=== PATIENT | male | born 1955 | race Caucasian/White ===

== ENCOUNTER 2017-05-20 15:22 | Emergency (ER) | payer MEDICARE, MEDICAID ==
[~2017-05-20] VITALS: Ht 175.3 cm; Wt 136.4 kg
[~2017-05-20 15:22] MED LIST: /DULO30CA; /ESOM40CA; /ESOM40CA OR; /TAMS4CA OR; ALLE25CA OR; AMBI10TA OR; AMRIX ER; AMRIX ER OR; ARTHROTEC OR; ASTELIN NASAL SPRAY; AVAP150T; AVAP150T OR; CALCCHW12; CALCCHW12 OR; CLOB-25 EX; CRES5TAB; CRES5TAB OR; CYAN1000VL IM; DARV100T; DARV100T OR; DESO0.0522 EXT; DRIS50002 PO; FERR1TAB8 PO; FISH500C PO; FOLI1TAB; FOLI1TAB OR; FOLI400T PO; GABA-282 PO; GABA300C2 PO; HYDR25TA8 PO; IBUP600T OR; IBUP800T; IRBE150T12 PO; LEVO25TA2 OR; LORA0.5T OR; MAGN500T5 PO; MORP15TA6 PO; MULTIVIT OR; NEXI40CA PO; OXYC-517 PO; OXYC10TA12 OR; OXYC15TA66 PO; REMICADE; REMICADE IV; SALI0.6523; SAVELLA OR; SERO50TA3 PO; TESTPOW5 IM; THERGRAN; TRAM50TA2; TRAM50TA2 OR; TRAZ100T OR; VIIBRYD PO; VITA100T IM; VITA25003; VITA50TA12; VITAMIN D2 PO; VITAMIN D50000 UNT; VITAMIN D50000 UNT OR; WARF4TAB52 PO; ZETI10TA OR; ZOLP10TA2 PO; celebrex PO; diclofenac PO
[2017-05-20] MEDS ORDERED: IBUP-1022 PO (15:46)
[2017-05-20] MEDS ORDERED: TRAM50TA2 PO (15:46)
[2017-05-20] MEDS ORDERED: LIPI10TA PO (15:46)
[2017-05-20] MEDS ORDERED: COLA100C5 PO (15:46)
[2017-05-20] MEDS ORDERED: VICT18IN SC (15:46)
[2017-05-20] MEDS ORDERED: MULT1CHW26 PO (15:46)
[2017-05-20] MEDS ORDERED: GABA-283 PO (17:13)
[2017-05-20] MEDS ORDERED: oxyCODONE 5MG TAB PO ONE (17:15)
[2017-05-20] MEDS ORDERED: IBUPROFEN 800 MG TAB PO ONE (17:15)
[2017-05-20] MEDS ORDERED: GABAPENTIN 400 MG CAP PO ONE (17:15)
[2017-05-20 17:35] LABS: MEAN CORPUSCULAR HEMOGLOBIN 33.4 pg (27.0-33.0); MEAN CORPUSCULAR HGB CONC 36.2 g/dl (32.0-36.5); MEAN CORPUSCULAR VOLUME 92.3 fl (80.0-96.0); RED CELL DISTRIBUTION WIDTH 12.1 % (11.5-14.5); WHITE BLOOD COUNT 7.7 K/mm3 (4.0-10.0)
[2017-05-20 17:43] LABS: METHADONE URINE NEGATIVE (NEGATIVE)
[2017-05-20 18:06] LABS: ALBUMIN 4.1 GM/DL (3.2-5.2); ALBUMIN/GLOBULIN RATIO 1.21 (1.00-1.93); ALKALINE PHOSPHATASE 95 U/L (45-117); ALT/SGPT 46 U/L (12-78); ANION GAP 7 MEQ/L (8-16); AST/SGOT 31 U/L (15-37); BILIRUBIN,DIRECT 0.1 MG/DL (0.0-0.2); BILIRUBIN,TOTAL 0.5 MG/DL (0.2-1.0); BLOOD UREA NITROGEN 18 MG/DL (7-18); CALCIUM LEVEL 8.6 MG/DL (8.8-10.2); CARBON DIOXIDE LEVEL 27 MEQ/L (21-32); CHLORIDE LEVEL 105 MEQ/L (98-107); CREATININE FOR GFR 1.09 MG/DL (0.70-1.30); GLOMERULAR FILTRATION RATE > 60.0 (>49); GLUCOSE, FASTING 99 MG/DL (80-110); SODIUM LEVEL 139 MEQ/L (136-145); TOTAL PROTEIN 7.5 GM/DL (6.4-8.2)
[2017-05-20 19:40] VITALS: BP 158/87
== END 2017-05-20 19:41 | disposition home or self-care (01) ==
LOC: M ED 15:22
DX: F32.9 Major depressive disorder, single episode, unspecified (principal); I10 Essential (primary) hypertension; G89.29 Other chronic pain; M51.9 Unspecified thoracic, thoracolumbar and lumbosacral intervertebral disc disorder; L40.50 Arthropathic psoriasis, unspecified; G47.33 Obstructive sleep apnea (adult) (pediatric); M79.7 Fibromyalgia; Z87.891 Personal history of nicotine dependence; Z79.899 Other long term (current) drug therapy; Z88.8 Allergy status to other drugs, medicaments and biological substances
CPT/HCPCS: 36415; 80048; 80076; 80307; 84443; 85027; 99284; G0480

== ENCOUNTER → 2017-08-19 | Outpatient (CLI) | payer MEDICARE, MEDICAID ==
[~2017-08-19] MED LIST changes: +COLA100C5 PO; +GABA-283 PO; +IBUP-1022 PO; +LIPI10TA PO; +MULT1CHW26 PO; +TRAM50TA2 PO; +VICT18IN SC
--- NOTE | 2017-09-17 01:31 | ECWPNPC ---
PATIENT NAME: ZORAIDA BRAUN : 1955 GENDER: MALE VISIT DATE: 08/19/2017 DISCHARGE DATE: 08/19/17 1547 VISIT LOCKED DATE TIME: PHYSICIAN: NICK HAYES RESOURCE: NICK HAYES REASON FOR APPOINTMENT 1. NECK AND THORACIC PAIN HISTORY OF PRESENT ILLNESS NEW PATIENT CONSULT: WHEN DID YOUR PAIN FIRST START? . BRIEFLY DESCRIBE HOW YOUR PAIN STARTED? . HOW DOES YOUR PAIN CHANGE WITH TIME? . DOES YOUR PAIN AWAKEN YOU FROM SLEEP? . HOW MANY HOURS OF SLEEP DO YOU NORMALLY GET? . ANY DIAGNOSTIC TESTING? . FACILITY WHERE TESTS WERE DONE? ____. PAIN TREATMENT TREATMENT YES CANCER HAVE YOU EVER HAD ANY TYPE OF CANCER?NO NO. PAIN SCREENING: PATIENT HAS A COMPLAINT OF ACUTE OR CHRONIC PAIN :YES FALL RISK SCREENING: SCREENING :NO FALLS IN THE PAST YEAR ABREU INVENTORY: QUESTIONNAIRE ASSESSEDNO SCORE VALUE CALCULATED NO PT DECLINES TO FILL OUT ABREU SELF INVENTORY. STATES THAT DEPRESSION IS UNDER CONTROL AND DENIES SUICIDAL IDEATION TODAY'S VISIT: NOTES: REFERRED FOR NECK ANAD THORACIC PAIN AND HAS LONG STANDING HISTORY OF LOW BACK PAIN WHICH EFFECTS WALKING. IS ALSO CURRENTLY HAVING PAIN IN MID BACK WITH RADIATIN OF PAINAROUND RIBS LEFT SIDE. NO SIGN OF RASH OR SHINGLES IN THIS AREA. NO LOW BACK IS THE WORSE WITH BILATERAL SCIATIC PAIN. 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 IS NOTING NUMBNESS FROM HIPS TO FEET WHEN STANDING. IS HAVING EXPERIENCING PERINEAL NUMBNESS AND HAS SOME ISSUES WITH BOWEL CONTROL. HAS SOME BLADER URGENCY. SAW [place] BUSTILLO/DR CASTELLON, SURGEON FOR NECK AT [place]. CURRENT MEDICATIONS TAKING GABAPENTIN 300 MG CAPSULE 1 CAPSULE ORALLY THREE TIMES A DAY TAKING OXYCODONE HCL 5 MG TABLET 1 TABLET NEEDED ORALLY EVERY 4 HOURS PRN TAKING FERROUS SULFATE 325 MG CAPSULE ORALLY TAKING IRBESARTAN 150 MG TABLET 1 TABLET ORALLY ONCE A DAY TAKING AMBIEN 10 MG TABLET ORAL TAKING DESONIDE 0.05 % OINTMENT 1 APPLICATION TO AFFECTED AREA EXTERNALLY TWICE A DAY TAKING NEXIUM 40 MG CAPSULE DELAYED RELEASE 1 CAPSULE ORALLY ONCE A DAY TAKING VITAMIN D (ERGOCALCIFEROL) 49741 UNIT CAPSULE 1 CAPSULE ORALLY TAKING VICTOZA 18 MG/3ML SOLUTION PEN-INJECTOR SUBCUTANEOUS NOT-TAKING OXYCONTIN 15 MG TABLET EXTENDED RELEASE 12 HOUR 1 TABLET ORALLY EVERY 12 HRS NOT-TAKING WARFARIN SODIUM 8 MG TABLET 1 TABLET ORALLY ONCE A DAY AND 7 MG ON SATURDAY NOT-TAKING FOLIC ACID 4 MG TABLET 1 TABLET ORALLY ONCE A DAY NOT-TAKING CYANOCOBALAMIN 1000 MCG/ML SOLUTION 1 ML INJECTION NOT-TAKING CLOBETASOL & CLOBETASOL EMUL 0.05 & 0.05 % MISCELLANEOUS EXTERNALLY NOT-TAKING KEFLEX 500 MG CAPSULE 1 CAPSULE ORALLY DIRECTED NOT-TAKING PROAIR HFA 108 (90 BASE) MCG/ACT AEROSOL SOLUTION 2 PUFFS NEEDED INHALATION QID PRN NOT-TAKING VITAMIN B-12 1000 MCG/ML SOLUTION 1 ML INJECTION MONTHLY UNKNOWN COLACE 100 MG CAPSULE 1 CAPSULE NEEDED ORALLY ONCE A DAY UNKNOWN LEVAQUIN 500 MG TABLET 1 TABLET ORALLY ONCE A DAY MEDICATION LIST REVIEWED AND RECONCILED WITH THE PATIENT PAST MEDICAL HISTORY HTN CHRONIC PAIN KIDNEY STONE ED RLS TESTICULAR HYPOFUNCTION SLEEP APNEA VITAMIN B 12 DEFICIENCY ANXIETY ARTHRITIS TIA HYPERLIPIDEMIA HYPOTHYROIDISM OSTEOPENIA NEUROPATHY PSORIASIS PULMONARY EMBOLISM COLON POLYP VITAMIN D DEFICIENCY IRRITABLE COLON CHRONIC PEPTIC ULCER INSOMNIA FIBROMYALGIA PRNEOMOTHORAX DIEBETES/ ELEVATED A1C ALLERGIES TOPIRAMATE: HEART PALPITATIONS: ALLERGY GEMFIBROZIL: UNKNOWN: ALLERGY NIACIN: UNKNOWN: ALLERGY BEE STINGS: SWELLING, BLOOD POISONING: ALLERGY LEVAQUIN: SWELLING: ALLERGY SURGICAL HISTORY BROKEN LEFT LEG 4 SURGERIES 1970,1971, 1973 URETHRA RECONSTRUCTION SURGERY 1975 ORAL SUGERY 26 TEETH EXTRACTED 1981 CARDIAC CATH 1998 BILATERAL INGUINAL HERNIA 2000 COLONOSCOPY AND ENDOSCOPY 1998 COLONOSCOPY 2 TIMES [id number] COLONOSCOPY AND ENDOSCOPY 2005 COLONOSCOPY 2007 COLONOSCOPY/GASTROSCOPY 06/28/2009 RIGHT SHOULDER ROTATOR CUFF REPAIR 05/02/2010 LEFT SHOULDER ROTATOR CUFF REPAIR 04/12/2011 RIGHT CARPAL TUNNEL RELEASE 06/2011 LEFT CARPAL TUNNEL RELEASE 08/2011 RIGHT AND LEFT EYE-LID LIFT 08/2011 ORAL SURGERY 10/13/11 SKIN CANCER REMOVED FROM LEFT ELBOW 06/29/12 LESION REMOVED LEFT LEG, 2 NODULES NEAR LEFT ELBOW 2013 LESION REMOVED R.LEG 12/02/14 PNEUMOTHORAX RIGHT LUNG 04/25/15 PNEUMOTHORAX RIGHT LUNG 04/28/15 PULMONARY EMBOLISM BOTH LUNGS 05/19/15 PNEUMOTHORAX RIGHT LUNG, HEMORRHAGE 08/13/15 RIGHT LUNG REPAIR 08/18/15 FAMILY HISTORY FATHER: 83 YRS, COPD MOTHER: 87 YRS, LEUKEMIA SIBLINGS: ALIVE 2 BROTHER(S) , 3 SISTER(S) . ONE BROTHER FROM HEART ATTACK. SOCIAL HISTORY GENERAL: TOBACCO USE ARE YOU A:FORMER SMOKER HOW LONG HAS IT BEEN SINCE YOU LAST SMOKED?> 10 YEARS ALCOHOL SCREENING POINTS: 0, INTERPRETATION: NEGATIVE. RECREATIONAL DRUG USE DENIES. CAFFEINE 1-2/DAY. SEXUAL HX HAD SEX IN THE LAST 12 MONTHS (VAGINAL, ORAL, OR ANAL)?: NO, HAVE YOU EVER HAD AN STD?: NO. DIET: REGULAR. EXERCISE: NO REGULAR EXERCISE. MARITAL STATUS: SINGLE. PRESYBETERIAN NO CHRISTIAN BELIEFS THAT WOULD IMPACT HEALTH CARE. LANGUAGE TUNISIAN. PAIN CLINIC PFS, CLERGY, PUBLIC HEALTH REFERRALS PFS REFERRAL NEEDED?NO CLERGY REFERRAL NEEDED?NO PUBLIC HEALTH REFERRAL NEEDED?NO WAS THE PROVIDER NOTIFIED OF ANY PERTINENT INFO?NO HAS THE PATIENT BEEN EDUCATED REGARDING HIS/HER PLAN OF CARE?YES HAS THE PATIENT BEEN EDUCATED REGARDING PAIN, THE RISK FOR PAIN, THE IMPORTANCE OF EFFECTIVE PAIN MANAGEMENT, AND THE PAIN ASSESSMENT PROCESS?YES PATIENT: ____. TRAVEL OUTSIDE US: DENIES. DOMESTIC VIOLENCE NONE. HOSPITALIZATION/MAJOR DIAGNOSTIC PROCEDURE SURGICAL HISTORY REVIEW OF SYSTEMS REVIEWED BY: PROVIDER: NICK CROOK . CONSTITUTIONAL: ANY CHANGE IN YOUR MEDICAL CONDITION? NO . CHILLS NO . FEVER NO . INFECTION: DO YOU HAVE NEW INFECTIONS? NO . DO YOU HAVE HISTORY OF MRSA? NO . MUSCULOSKELETAL: ANY NEW PATTERNS OF PAIN OR NUMBNESS? NO . SYTEMIC LUPUS NO . GASTROENTEROLOGY: ANY NEW CHANGE IN BOWEL CONTROL? NO . BARRETTS ESOPHAGUS NO . CIRRHOSIS NO . HEPATITIS NO . LIVER FAILURE NO . ACID REFLUX YES . UNEXPLAINED WEIGHT LOSS NO . GENITOURINARY: ANY NEW CHANGE IN BLADDER CONTROL? NO . IS THERE A CHANCE YOU COULD BE ? NO . HEMATOLOGY/LYMPH: DO YOU TAKE ANY BLOOD THINNERS? (FOR EXAMPLE- COUMADIN, PLAVIX, AGGRENOX, PLATEL, PRADAXA, OR XARELTO) NO . WHEN WAS YOUR LAST DOSE? DATE: TIME: . LOW PLATELET COUNT NO . SICKLE CELL DISEASE NO . VON WILLIEBRANDS NO . FACTOR V LEIDEN NO . THALLASEMIA NO . ANEMIA NO . EASY BRUISING NO . NEUROLOGY: MYAASTHENIA GRAVIS NO . LOSS OF SENSATION IN SPECIFIC BODY AREA LEGS TO FEET. PERINEAL NUMBNESS . CARDIOLOGY: DO YOU HAVE A PACEMAKER OR DEFIBRILLATOR? NO . ANGINA NO . HEART ATTACK NO . HEART SURGERY NO . CONGESTIVE HEART FAILURE/FLUID OVERLOAD NO . CHEST PAIN YES - SHARP IN ANTERIOR CHEST, AND IN BACK.HAD CARDIAC CATH WHICH SHOWED CLEAN CORONARIES . HIGH BLOOD PRESSURE NO . IRREGULAR HEART BEAT YES - HAS HEART MONITOR . RESPIRATORY: HAVE YOU BEEN SICK IN THE PAST WEEK? NO . FEVER NO . FLU LIKE SYMPTOMS? NO . CPAP YES . BYPAP NO . ASTHMA NO . EMPHYSEMA NO . CHRONIC LUNG DISEASES NOSPONTANEOUS PNEUMOTHORARAX AFTER FALL FROM LADDER APRIL 2015. HAD NUMEROUS CHEST TUBES PLACED AND THEN DEVELOPED PE- WAS ON COUMADIN. . SHORTNESS OF BREATH ON EXERTION NO . DO YOU USE ANY TYPE OF TOBACCO (SMOKE, SMOKELESS, CHEW)? NO . COUGH NO . SNORING YES . INTEGUMENTARY: DO YOU HAVE ANY RASHES OR OPEN SORES? PSORIASIS IN [place] AREAS. HEALING LEASIONS FROM SKIN CANCER LESIONS . ALLERGIC/IMMUNO: ARE YOU ALLERGIC TO SHELLFISH OR IV DYE? NO . ANY NEW ALLERGIES? NO . PSYCHIATRIC: DO YOU HAVE THOUGHTS OF HURTING YOURSELF OR SOMEONE ELSE? NO . ARE YOU ABUSED, NEGLECTED, OR IN AN UNSAFE ENVIRONMENT? NO . ENDOCRINOLOGY: ARE YOU DIABETIC? YES - A1C 5.1 - . THYROID DISORDER NO . OTHER: DO YOU NEED ANY PRESCRIPTIONS? NO . IF YES, PLEASE LIST: ____ . ANY NEW PROBLEMS WITH YOUR MEDICATIONS? NO . WHEN DID YOU LAST EAT? ____ . WHEN DID YOU LAST DRINK? ____ . WHAT DID YOU LAST DRINK? ____ . NAME OF PERSON DRIVING YOU HOME? ____ . DO YOU HAVE ANY OTHER QUESTIONS OR CONCERNS NO . VITAL SIGNS WT 303 LBS, HT 5'9'', BMI 44.74 INDEX, BP 127/75 MM HG, HR 77 /MIN, RR 16 /MIN, TEMP 98.6 F, OXYGEN SAT % 96, SAFE IN ENV? (Y/N) YES, REVIEWED BY: PHUONG RUGGIERO. EXAMINATION GENERAL EXAMINATION: GENERAL APPEARANCE:TALL, OVERWEIGHT. PSYCHALERT , ORIENTED X 3 , APPROPRIATE MOOD AND AFFECT , , GOOD EYE CONTACT. HEENT:NORMOCEPHALIC, NO LYMPHADENOPATHY, NO LYMPHADENOPATHY. LUNGS:CLEAR TO AUSCULTATION BILATERALLY, NO WHEEZES, RALES OR RHONCHI. HEART:NORMAL S1S2, NO MURMURS, CLICK OR RUBS. MUSCULOSKELETAL:MUSCLE STRENGTH TESTING 5/5 BILATERAL UPPER AND LOWER EXTREMITIES. POINT TENDERNESS OVER C7 PROMINENCCE. , TRIGGER POINTS AND TIGHT FIBROUS BANDS OVER TRAPEZIUS MUSCLES AND OVER RIGHT > LEFT SCAPULA. POINT TENDERNESS OVER LUMBAR SPINOUS PROCESSES AND ACROSS THE LUMBOSACRAL AXIS. RISES EASILY TO FULL UPRIGHT POSITION. GAIT NONANTALGIIC.. ASSESSMENTS LUMBAGO WITH SCIATICA, LEFT SIDE - M54.42 (PRIMARY) LUMBAGO WITH SCIATICA, RIGHT SIDE - M54.41 OTHER CHRONIC PAIN - G89.29 BILATERAL SACROILIITIS - M46.1 TREATMENT LUMBAGO WITH SCIATICA, LEFT SIDE INJECTION ANESTHETIC SACROILIAC JOINTFREDDYNICK Dave 08/19/2017 3:22:03 PM > BILATERAL NOTES: NEED REPORTS OF MRI'S BEFORE ANY INJECTIONS ARE DONEDO NOT TAKE DIABETES MEDS AM OF PROCEDURE., FALLS CARE PLAN: 1. RECOMMEND REMOVING ALL THROW RUGS. 2. RECOMMEND NIGHT LIGHTS 3. RECOMMEND WEARING RUBBER SOLED SHOES AND TO NOT GO BAREFOOT. 4.. ADVISED TO CHANGE POSITION SLOWLY FROM SUPINE TO STANDING TO AVOID DIZZINESS. , #128 - SCREENING BMI AND F/U PLAN IN : BMI ABOVE NORMAL TODAY. DISCUSSED WITH PATIENT NUTRITIONAL FOOD CHOICES TO ASSIST WITH WEIGHT LOSS. RECCOMMENDED REDUCING SALT, SUGAR, SODA INTAKE. RECOMMEND INCREASE ACTIVITY TO INCLUDE WALKING ON A REGULAR BASIS, DO PT EXERCISES DAILY. DIAGNOSTIC IMAGING [facility] [place] GUIDANCE (PAIN)[id number] PROCEDURE CODES FA211 ESTABILISHED PATIENT [facility] FACILITY CHARGE 11716 INJECT SACROILIAC JOINT G8783 BP SCR PRFRM RCMDD DEFIND SCR INTVL G8730 PAIN ASSESS POS TOOL F/U PLAN DOC 1124F ACP DISCUSS-NO [id number] DOCD 1036F TOBACCO NON-USER 0518F FALL PLAN OF CARE DOCD G8427 DOC MEDS VERIFIED W/PT OR RE G8417 BMI >=30 CALCUATE W/FOLLOWUP 3288F FALL RISK ASSESSMENT DOCD 4004F PT TOBACCO SCREEN RCVD TLK DISPOSITION & COMMUNICATION FOLLOW UP AFTER INJECTION (REASON: RADHA/NEED IMAGING STUDIES OF NECK/THORACIC AND LUMBAR SPINE DONE AT [facility]) ELECTRONICALLY SIGNED BY MARK MERA ON 09/16/2017 AT 09:53 PM EDT DISCLAIMER : THIS IS A VISIT SUMMARY EXTRACTED FROM THE [employer] CHART. IT IS NOT A COPY OF THE [employer] PROGRESS NOTE. MTDD
== END ==
LOC: M PAIN 13:30
PROVIDERS: ATTEND Nurse Practitioner Family
DX: G89.29 Other chronic pain (principal); M54.42 Lumbago with sciatica, left side; M54.41 Lumbago with sciatica, right side; M46.1 Sacroiliitis, not elsewhere classified; E11.9 Type 2 diabetes mellitus without complications; K21.9 Gastro-esophageal reflux disease without esophagitis; G47.30 Sleep apnea, unspecified; F41.9 Anxiety disorder, unspecified; I25.2 Old myocardial infarction; E78.5 Hyperlipidemia, unspecified; E03.9 Hypothyroidism, unspecified; M85.80 Other specified disorders of bone density and structure, unspecified site; E55.9 Vitamin D deficiency, unspecified; Z88.8 Allergy status to other drugs, medicaments and biological substances; Z91.030 Bee allergy status; Z79.84 Long term (current) use of oral hypoglycemic drugs; Z79.899 Other long term (current) drug therapy; Z87.891 Personal history of nicotine dependence; Z95.818 Presence of other cardiac implants and grafts

== ENCOUNTER → 2017-10-07 | Outpatient (CLI) | payer MEDICARE, MEDICAID ==
--- NOTE | 2017-10-21 00:45 | ECWPNPC ---
PATIENT NAME: ZORAIDA BRAUN : 1955 GENDER: MALE VISIT DATE: 10/07/2017 DISCHARGE DATE: 10/07/17 1207 VISIT LOCKED DATE TIME: PHYSICIAN: NICK HAYES RESOURCE: NICK HAYES REASON FOR APPOINTMENT 1. POST SIJ HISTORY OF PRESENT ILLNESS HISTORY OF PRESENT ILLNESS: PAIN THE PATIENT DESCRIBES THE PAIN... FALL RISK SCREENING: SCREENING :NO FALLS IN THE PAST YEAR TODAY'S VISIT: NOTES: RATES PAIN TODAY 4-5/10 WITH A 3/10 IN SCIATIC AREA. IS S/P BILATERAL SIJ INJECTION COMPLETED ON 09/12/17. NOTES IMPROVEMENT TO 2-3/10 IN THIS AREA AT 3 WEEKS. NOTES IMPROVEMENT IN STANDING/WALKING AND SLEEPING. PAIN SIG DECREASED INTO LEGS. IS STILL HAVING SOME TENDERNESS OVER THE LEFT SIJ BUT PAIN IS WORST HIGHER ON THE BACK. PAIN IS EFFECTING SLEEP. . CURRENT MEDICATIONS TAKING GABAPENTIN 400 MG CAPSULE 1 CAPSULE ORALLY THREE TIMES A DAY TAKING OXYCODONE HCL 5 MG TABLET 1 TABLET NEEDED ORALLY EVERY 6 HOURS PRN TAKING FERROUS SULFATE 325 MG CAPSULE 1 CAP ORALLY TID TAKING IRBESARTAN 150 MG TABLET 1 TABLET ORALLY ONCE A DAY TAKING AMBIEN 10 MG TABLET 1 TAB ORAL BEFORE BEDTIME TAKING DESONIDE 0.05 % OINTMENT 1 APPLICATION TO AFFECTED AREA EXTERNALLY TWICE A DAY TAKING NEXIUM 40 MG CAPSULE DELAYED RELEASE 1 CAPSULE ORALLY ONCE A DAY TAKING VITAMIN D (ERGOCALCIFEROL) 53474 UNIT CAPSULE 1 CAPSULE ORALLY WEEKLY TAKING VICTOZA 18 MG/3ML SOLUTION PEN-INJECTOR 1.2 MG SUBCUTANEOUS DAILY TAKING MULTI ADULT GUMMIES - TABLET CHEWABLE 2 CHEWABLES ORALLY DAILY TAKING LIPITOR 10 MG TABLET 1 TABLET ORALLY ONCE A DAY TAKING CALCIUM 600 MG TABLET 1 TABLET WITH MEALS ORALLY DAILY TAKING KRILL OIL 500 MG CAPSULE 1 CAP ORALLY DAILY TAKING COLACE 100 MG CAPSULE 1 CAPSULE NEEDED ORALLY ONCE A DAY, NOTES: 09/11 2200 NOT-TAKING CLOBETASOL & CLOBETASOL EMUL 0.05 & 0.05 % MISCELLANEOUS EXTERNALLY MEDICATION LIST REVIEWED AND RECONCILED WITH THE PATIENT PAST MEDICAL HISTORY HTN CHRONIC PAIN KIDNEY STONE ED RLS TESTICULAR HYPOFUNCTION SLEEP APNEA VITAMIN B 12 DEFICIENCY ANXIETY ARTHRITIS TIA HYPERLIPIDEMIA HYPOTHYROIDISM OSTEOPENIA NEUROPATHY PSORIASIS PULMONARY EMBOLISM COLON POLYP VITAMIN D DEFICIENCY IRRITABLE COLON CHRONIC PEPTIC ULCER INSOMNIA FIBROMYALGIA PRNEOMOTHORAX DIEBETES/ ELEVATED A1C ALLERGIES TOPIRAMATE: HEART PALPITATIONS: ALLERGY GEMFIBROZIL: UNKNOWN: ALLERGY NIACIN: UNKNOWN: ALLERGY BEE STINGS: SWELLING, BLOOD POISONING: ALLERGY LEVAQUIN: SWELLING: ALLERGY SOCIAL HISTORY GENERAL: TOBACCO USE ARE YOU A:FORMER SMOKER HOW LONG HAS IT BEEN SINCE YOU LAST SMOKED?> 10 YEARS ALCOHOL SCREENING POINTS: 0, INTERPRETATION: NEGATIVE. RECREATIONAL DRUG USE DENIES. CAFFEINE 1-2/DAY. SEXUAL HX HAD SEX IN THE LAST 12 MONTHS (VAGINAL, ORAL, OR ANAL)?: NO, HAVE YOU EVER HAD AN STD?: NO. DIET: REGULAR. EXERCISE: NO REGULAR EXERCISE. MARITAL STATUS: SINGLE. HINDU [id number] [employer] LANGUAGE SERBIAN. LEARNING BARRIERS / SPECIAL NEEDS CHANGE FROM LAST VISIT?NO BARRIERS TO LEARNING?YES HEARING IMPAIRED?YES 80% HEARING LOSS RIGHT EAR VISION IMPAIRED?YES :CORRECTIVE LENSES COGNITIVELY IMPAIRED?NO READINESS TO LEARN?YES LEARNING PREFERENCES?NO LEARNING CAPABILITIES PRESENT?YES EMOTIONAL BARRIERS?NO SPECIAL DEVICES?YES :CANE SYSTEMS MANAGEMENT CONSULTANT NEEDED?NO PAIN CLINIC PFS, CLERGY, PUBLIC HEALTH REFERRALS PFS REFERRAL NEEDED?NO CLERGY REFERRAL NEEDED?NO PUBLIC HEALTH REFERRAL NEEDED?NO WAS THE PROVIDER NOTIFIED OF ANY PERTINENT INFO?NO HAS THE PATIENT BEEN EDUCATED REGARDING HIS/HER PLAN OF CARE?YES HAS THE PATIENT BEEN EDUCATED REGARDING PAIN, THE RISK FOR PAIN, THE IMPORTANCE OF EFFECTIVE PAIN MANAGEMENT, AND THE PAIN ASSESSMENT PROCESS?YES REVIEWED BY: 09/12 17 1025 AD. PATIENT: ____. ADVANCE DIRECTIVES HEALTH CARE PROXY?YES NAME OF HCP SHANIQUA PLATA CONTACT # FOR HCP [phone] DO YOU HAVE A COPY WITH YOU?NO DO YOU HAVE A DNR?NO WOULD YOU LIKE MORE INFORMATION?NO LIVING WILL?NO WOULD YOU LIKE MORE INFORMATION?NO POWER OF ASPARAGUS BUNCHER?NO WOULD YOU LIKE MORE INFORMATION?NO TRAVEL OUTSIDE US: DENIES. DOMESTIC VIOLENCE NONE. REVIEW OF SYSTEMS REVIEWED BY: PROVIDER: . CONSTITUTIONAL: ANY CHANGE IN YOUR MEDICAL CONDITION? NO . CHILLS NO . FEVER NO . INFECTION: DO YOU HAVE NEW INFECTIONS? NO . DO YOU HAVE HISTORY OF MRSA? NO . MUSCULOSKELETAL: ANY NEW PATTERNS OF PAIN OR NUMBNESS? NO . GASTROENTEROLOGY: ANY NEW CHANGE IN BOWEL CONTROL? NO . GENITOURINARY: ANY NEW CHANGE IN BLADDER CONTROL? NO . IS THERE A CHANCE YOU COULD BE ? NO . HEMATOLOGY/LYMPH: DO YOU TAKE ANY BLOOD THINNERS? (FOR EXAMPLE- COUMADIN, PLAVIX, AGGRENOX, PLATEL, PRADAXA, OR XARELTO) NO . WHEN WAS YOUR LAST DOSE? DATE: TIME: . NEUROLOGY: HAVE YOU FALLEN IN THE PAST 6 MONTHS? NO . ANY NEW EXTREMITY NUMBNESS OR WEAKNESS? NO . CARDIOLOGY: DO YOU HAVE A PACEMAKER OR DEFIBRILLATOR? NO . RESPIRATORY: HAVE YOU BEEN SICK IN THE PAST WEEK? NO . FEVER NO . FLU LIKE SYMPTOMS? NO . COUGH NO . INTEGUMENTARY: DO YOU HAVE ANY RASHES OR OPEN SORES? NO . ALLERGIC/IMMUNO: ARE YOU ALLERGIC TO SHELLFISH OR IV DYE? NO . ANY NEW ALLERGIES? NO . PSYCHIATRIC: DO YOU HAVE THOUGHTS OF HURTING YOURSELF OR SOMEONE ELSE? NO . ARE YOU ABUSED, NEGLECTED, OR IN AN UNSAFE ENVIRONMENT? NO . ENDOCRINOLOGY: ARE YOU DIABETIC? YES . OTHER: DO YOU NEED ANY PRESCRIPTIONS? NO . IF YES, PLEASE LIST: ____ . ANY NEW PROBLEMS WITH YOUR MEDICATIONS? NO . WHEN DID YOU LAST EAT? ____ . WHEN DID YOU LAST DRINK? ____ . WHAT DID YOU LAST DRINK? ____ . NAME OF PERSON DRIVING YOU HOME? ____ . DO YOU HAVE ANY OTHER QUESTIONS OR CONCERNS NO . VITAL SIGNS WT 307 LBS, HT 5'9'', BMI 45.33 INDEX, BP 137/72 MM HG, HR 69 /MIN, RR 18 /MIN, TEMP 97.9 F, OXYGEN SAT % 95%, SAFE IN ENV? (Y/N) YES, NA INITIALS SC 11:10, REVIEWED BY: CS. EXAMINATION GENERAL EXAMINATION: LUNGS:CLEAR TO AUSCULTATION BILATERALLY. HEART:HEART RATE REGULAR. MUSCULOSKELETAL:POINT TENDERNESS OVER L>R SIJ. , TRIGGER POINTSAND TIGHT FIBROUS BANDS OVER LOW THORACIC AND LUMBER PARAVERTEBRAL . ASSESSMENTS SACROILIITIS, NOT ELSEWHERE CLASSIFIED - M46.1 (PRIMARY) MYALGIA - M79.1 TREATMENT SACROILIITIS, NOT ELSEWHERE CLASSIFIED TRIGGER POINT 3 + NICK BOYD 10/07/2017 11:51:27 AM > MIDTHORACIC TO LUMBAR BILATERAL NOTES: HOLD DIABETES MEDS AM OF PROCEDURE. PREVENTIVE MEDICINE PAIN CLINIC TEACHING: PROCEDURE TEACHING PRE-PROCEDURE TEACHING DONE AND PATIENT VERBALIZES UNDERSTANDING.. PROCEDURE CODES FA211 ESTABILISHED PATIENT [facility] FACILITY CHARGE G8730 PAIN ASSESS POS TOOL F/U PLAN DOC G8427 DOC MEDS VERIFIED W/PT OR RE DISPOSITION & COMMUNICATION FOLLOW UP AFTER INJECTION (REASON: CHECK AUTH FOR TPI) ELECTRONICALLY SIGNED BY MARK MERA ON 10/19/2017 AT 10:56 AM EST DISCLAIMER : THIS IS A VISIT SUMMARY EXTRACTED FROM THE [employer] CHART. IT IS NOT A COPY OF THE [employer] PROGRESS NOTE. MTDD
== END ==
LOC: M PAIN 10:45
PROVIDERS: ATTEND Nurse Practitioner Family
DX: G89.29 Other chronic pain (principal); M46.1 Sacroiliitis, not elsewhere classified; M79.1 Myalgia; I10 Essential (primary) hypertension; G25.81 Restless legs syndrome; G47.30 Sleep apnea, unspecified; F41.9 Anxiety disorder, unspecified; E03.9 Hypothyroidism, unspecified; E55.9 Vitamin D deficiency, unspecified; E11.9 Type 2 diabetes mellitus without complications; Z88.8 Allergy status to other drugs, medicaments and biological substances; Z91.030 Bee allergy status; Z79.891 Long term (current) use of opiate analgesic; Z79.4 Long term (current) use of insulin; Z79.899 Other long term (current) drug therapy; Z87.891 Personal history of nicotine dependence

== ENCOUNTER → 2017-10-14 | Outpatient (CLI) | payer MEDICARE, MEDICAID ==
[~2017-10-14] MED LIST changes: +BUPIVACAINE HCL 0.25% 10 ML VIAL As Ordered ONE; +BUPIVACAINE HCL 0.25% 30 ML VIAL As Ordered ONE; +TRIAMCINOLONE ACETONIDE SUSP 40 MG/ML VIAL (J3301) As Ordered ONE; +diazePAM 5 MG TAB As Ordered ONE; +oxyCODONE 5MG TAB As Ordered ONE
--- NOTE | 2017-10-30 00:21 | ECWPNPC ---
PATIENT NAME: ZORAIDA BRAUN : 1955 GENDER: MALE VISIT DATE: 10/14/2017 DISCHARGE DATE: 10/14/17 1430 VISIT LOCKED DATE TIME: PHYSICIAN: CARLOS VALDEZ RESOURCE: CARLOS VALDEZ REASON FOR APPOINTMENT 1. TPI-MIDTHORACIC TO LUMBAR BILATERAL HISTORY OF PRESENT ILLNESS HISTORY OF PRESENT ILLNESS: PAIN THE PATIENT DESCRIBES THE PAIN... FALL RISK SCREENING: SCREENING :NO FALLS IN THE PAST YEAR CURRENT MEDICATIONS TAKING GABAPENTIN 400 MG CAPSULE 1 CAPSULE ORALLY THREE TIMES A DAY, NOTES: 10-14-17899 TAKING OXYCODONE HCL 5 MG TABLET 1 TABLET NEEDED ORALLY EVERY 6 HOURS PRN, NOTES: 10-14-17799 TAKING FERROUS SULFATE 325 MG CAPSULE 1 CAP ORALLY TID, NOTES: 10-14-17899 TAKING IRBESARTAN 150 MG TABLET 1 TABLET ORALLY ONCE A DAY, NOTES: 10-14-17899 TAKING AMBIEN 10 MG TABLET 1 TAB ORAL BEFORE BEDTIME, NOTES: 10-13-172199 TAKING DESONIDE 0.05 % OINTMENT 1 APPLICATION TO AFFECTED AREA EXTERNALLY TWICE A DAY, NOTES: COUPLE DAYS TAKING NEXIUM 40 MG CAPSULE DELAYED RELEASE 1 CAPSULE ORALLY ONCE A DAY, NOTES: 10-14-17899 TAKING VITAMIN D (ERGOCALCIFEROL) 82975 UNIT CAPSULE 1 CAPSULE ORALLY WEEKLY, NOTES: 10-11-17 TAKING VICTOZA 18 MG/3ML SOLUTION PEN-INJECTOR 1.2 MG SUBCUTANEOUS DAILY, NOTES: 10-13-17 3 PM TAKING MULTI ADULT GUMMIES - TABLET CHEWABLE 2 CHEWABLES ORALLY DAILY, NOTES: 10-14-17799 TAKING LIPITOR 10 MG TABLET 1 TABLET ORALLY ONCE A DAY, NOTES: 10-12-17 TAKING CALCIUM 600 MG TABLET 1 TABLET WITH MEALS ORALLY DAILY, NOTES: 10-13-17 TAKING KRILL OIL 500 MG CAPSULE 1 CAP ORALLY DAILY, NOTES: 10-13-17 TAKING COLACE 100 MG CAPSULE 1 CAPSULE NEEDED ORALLY ONCE A DAY, NOTES: 10-13-172199 TAKING CLOBETASOL & CLOBETASOL EMUL 0.05 & 0.05 % MISCELLANEOUS EXTERNALLY , NOTES: 10-14-17 MEDICATION LIST REVIEWED AND RECONCILED WITH THE PATIENT PAST MEDICAL HISTORY HTN CHRONIC PAIN KIDNEY STONE ED RLS TESTICULAR HYPOFUNCTION SLEEP APNEA VITAMIN B 12 DEFICIENCY ANXIETY ARTHRITIS TIA HYPERLIPIDEMIA HYPOTHYROIDISM OSTEOPENIA NEUROPATHY PSORIASIS PULMONARY EMBOLISM COLON POLYP VITAMIN D DEFICIENCY IRRITABLE COLON CHRONIC PEPTIC ULCER INSOMNIA FIBROMYALGIA PRNEOMOTHORAX DIEBETES/ ELEVATED A1C ALLERGIES TOPIRAMATE: HEART PALPITATIONS: ALLERGY GEMFIBROZIL: UNKNOWN: ALLERGY NIACIN: UNKNOWN: ALLERGY BEE STINGS: SWELLING, BLOOD POISONING: ALLERGY LEVAQUIN: SWELLING: ALLERGY SURGICAL HISTORY BROKEN LEFT LEG 4 SURGERIES 1971,1972, 1974 URETHRA RECONSTRUCTION SURGERY 1975 ORAL SUGERY 26 TEETH EXTRACTED 1981 CARDIAC CATH 1998 BILATERAL INGUINAL HERNIA 2000 COLONOSCOPY AND ENDOSCOPY 1998 COLONOSCOPY 2 TIMES [id number] COLONOSCOPY AND ENDOSCOPY 2005 COLONOSCOPY 2008 COLONOSCOPY/GASTROSCOPY 06/28/2009 RIGHT SHOULDER ROTATOR CUFF REPAIR 05/02/2010 LEFT SHOULDER ROTATOR CUFF REPAIR 04/12/2011 RIGHT CARPAL TUNNEL RELEASE 06/2011 LEFT CARPAL TUNNEL RELEASE 08/2011 RIGHT AND LEFT EYE-LID LIFT 08/2011 ORAL SURGERY 10/13/11 SKIN CANCER REMOVED FROM LEFT ELBOW 06/29/12 LESION REMOVED LEFT LEG, 2 NODULES NEAR LEFT ELBOW 2013 LESION REMOVED R.LEG 12/02/14 PNEUMOTHORAX RIGHT LUNG 04/25/15 PNEUMOTHORAX RIGHT LUNG 04/28/15 PULMONARY EMBOLISM BOTH LUNGS 05/19/15 PNEUMOTHORAX RIGHT LUNG, HEMORRHAGE 08/13/15 RIGHT LUNG REPAIR 08/18/15 SOCIAL HISTORY GENERAL: TOBACCO USE ARE YOU A:FORMER SMOKER HOW LONG HAS IT BEEN SINCE YOU LAST SMOKED?> 10 YEARS ALCOHOL SCREENING POINTS: 0, INTERPRETATION: NEGATIVE. RECREATIONAL DRUG USE DENIES. CAFFEINE 1-2/DAY. SEXUAL HX HAD SEX IN THE LAST 12 MONTHS (VAGINAL, ORAL, OR ANAL)?: NO, HAVE YOU EVER HAD AN STD?: NO. DIET: REGULAR. EXERCISE: NO REGULAR EXERCISE. MARITAL STATUS: SINGLE. JAIN [id number] YAZIDI LANGUAGE ESTONIAN. LEARNING BARRIERS / SPECIAL NEEDS CHANGE FROM LAST VISIT?NO BARRIERS TO LEARNING?YES HEARING IMPAIRED?YES 80% HEARING LOSS RIGHT EAR VISION IMPAIRED?YES :CORRECTIVE LENSES COGNITIVELY IMPAIRED?NO READINESS TO LEARN?YES LEARNING PREFERENCES?NO LEARNING CAPABILITIES PRESENT?YES EMOTIONAL BARRIERS?NO SPECIAL DEVICES?YES :CANE GALVANIZER NEEDED?NO PAIN CLINIC PFS, CLERGY, PUBLIC HEALTH REFERRALS PFS REFERRAL NEEDED?NO CLERGY REFERRAL NEEDED?NO PUBLIC HEALTH REFERRAL NEEDED?NO WAS THE PROVIDER NOTIFIED OF ANY PERTINENT INFO?NO HAS THE PATIENT BEEN EDUCATED REGARDING HIS/HER PLAN OF CARE?YES HAS THE PATIENT BEEN EDUCATED REGARDING PAIN, THE RISK FOR PAIN, THE IMPORTANCE OF EFFECTIVE PAIN MANAGEMENT, AND THE PAIN ASSESSMENT PROCESS?YES REVIEWED BY: 09/12 17 1025 AD. PATIENT: ____. ADVANCE DIRECTIVES HEALTH CARE PROXY?YES NAME OF HCP SHANIQUA PLATA CONTACT # FOR HCP [phone] DO YOU HAVE A COPY WITH YOU?NO DO YOU HAVE A DNR?NO WOULD YOU LIKE MORE INFORMATION?NO LIVING WILL?NO WOULD YOU LIKE MORE INFORMATION?NO POWER OF PICKLE MAKER?NO WOULD YOU LIKE MORE INFORMATION?NO TRAVEL OUTSIDE US: DENIES. DOMESTIC VIOLENCE NONE. HOSPITALIZATION/MAJOR DIAGNOSTIC PROCEDURE SURGICAL HISTORY REVIEW OF SYSTEMS REVIEWED BY: PROVIDER: . CONSTITUTIONAL: ANY CHANGE IN YOUR MEDICAL CONDITION? NO . CHILLS NO . FEVER NO . INFECTION: DO YOU HAVE NEW INFECTIONS? NO . DO YOU HAVE HISTORY OF MRSA? NO . MUSCULOSKELETAL: ANY NEW PATTERNS OF PAIN OR NUMBNESS? NO . GASTROENTEROLOGY: ANY NEW CHANGE IN BOWEL CONTROL? NO . GENITOURINARY: ANY NEW CHANGE IN BLADDER CONTROL? NO . IS THERE A CHANCE YOU COULD BE ? NO . HEMATOLOGY/LYMPH: DO YOU TAKE ANY BLOOD THINNERS? (FOR EXAMPLE- COUMADIN, PLAVIX, AGGRENOX, PLATEL, PRADAXA, OR XARELTO) NO . WHEN WAS YOUR LAST DOSE? DATE: TIME: . NEUROLOGY: HAVE YOU FALLEN IN THE PAST 6 MONTHS? NO . ANY NEW EXTREMITY NUMBNESS OR WEAKNESS? NO . CARDIOLOGY: DO YOU HAVE A PACEMAKER OR DEFIBRILLATOR? NO . RESPIRATORY: HAVE YOU BEEN SICK IN THE PAST WEEK? NO . FEVER NO . FLU LIKE SYMPTOMS? NO . COUGH NO . INTEGUMENTARY: DO YOU HAVE ANY RASHES OR OPEN SORES? NO . ALLERGIC/IMMUNO: ARE YOU ALLERGIC TO SHELLFISH OR IV DYE? NO . ANY NEW ALLERGIES? NO . PSYCHIATRIC: DO YOU HAVE THOUGHTS OF HURTING YOURSELF OR SOMEONE ELSE? NO . ARE YOU ABUSED, NEGLECTED, OR IN AN UNSAFE ENVIRONMENT? NO . ENDOCRINOLOGY: ARE YOU DIABETIC? YES FSBS= 125 . OTHER: DO YOU NEED ANY PRESCRIPTIONS? NO . IF YES, PLEASE LIST: ____ . ANY NEW PROBLEMS WITH YOUR MEDICATIONS? NO . WHEN DID YOU LAST EAT? 10-14-17 0400 . WHEN DID YOU LAST DRINK? 10-14-17 0900 . WHAT DID YOU LAST DRINK? WATER . NAME OF PERSON DRIVING YOU HOME? MURPHY PLATA . DO YOU HAVE ANY OTHER QUESTIONS OR CONCERNS NO . VITAL SIGNS WT 307 LBS, HT 5'9'', BMI 45.33 INDEX, BP 143/87 MM HG, HR 61 /MIN, RR 18 /MIN, TEMP 97.6 F, OXYGEN SAT % 94%, NA INITIALS SC 12:24, REVIEWED BY: CM. ASSESSMENTS MYALGIA - M79.1 (PRIMARY) PROCEDURES PN TRIGGER POINT INJECTION WITH STEROIDS PRE PROCEDURE DIAGNOSIS 1. MYALGIA 2. PAIN AT BILATERAL LOWER BACK AREA POST PROCEDURE DIAGNOSIS 1. MYALGIA 2. PAIN AT BILATERAL LOWER BACK AREA PROCEDURE TRIGGER POINT INJECTION AT BILATERAL LOWER BACK AREA SURGEON DR. CARLOS VALDEZ HARDWARE TEST ENGINEER NONE ANESTHESIA LOCAL PRE PROCEDURE NOTE THE PATIENT HAS A HISTORY OF CHRONIC PAIN AT THE RIGHT AND LEFT LOWER BACK AREA. I EVALUATE THE PATIENT AND REVIEWED THE CHART. THERE IS EVIDENCE OF BANDS OF TISSUE WITH RESTRICTION OF MOVEMENT AND PRESENCE OF TRIGGER POINT AT THE AFFECTED AREA. I WENT OVER THE RISKS, ALTERNATIVES, AND BENEFITS ASSOCIATED WITH THIS PROCEDURE. THE PATIENT WOULD LIKE TO PROCEED AND GIVE CONSENT TO PERFORMED THE PROCEDURE. THE PATIENT DENIES UNEXPLAINABLE WEIGHT LOSS, FEVER, CHILLS, OR NEW CHANGES IN URINARY OR BOWEL CONTROL DESCRIPTION OF PROCEDURE THE PATIENT WAS BROUGHT TO THE PROCEDURE ROOM AND PLACED IN THE SITTING POSITION. THE AREA WAS CLEANED WITH ALCOHOL. THE PROCEDURE WAS DONE USING ASEPTIC STERILE TECHNIQUE. I CHECKED LATERALITY AND THE LEVEL WHERE THE PROCEDURE WAS GOING TO BE PERFORMED WITH THE PATIENT AND THE SUPPORTING STAFF AT THE MOMENT OF THE TIME OUT IN THE PROCEDURE ROOM. USING A 25-GAUGE NEEDLE, TRIGGER POINTS WERE INJECTED AT THE RIGHT AND LEFT LOWER BACK AREA WITH A TOTAL OF 40 ML OF BUPIVACAINE 0.25% AND KENALOG 40 MG. THERE WAS NO EVIDENCE OF BLOOD, PARESTHESIA OR CEREBROSPINAL FLUID DURING THE PROCEDURE. THE PATIENT WAS SENT TO THE RECOVERY ROOM. THE PATIENT WAS MOVING THE EXTREMITIES AND DOING WELL. THERE WAS NO COMPLICATION DURING THE PROCEDURE POST PROCEDURE NOTE THE PATIENT WILL BE SEEN IN A FOLLOW UP IN THE NEXT FEW WEEKS. INSTRUCTIONS WERE GIVEN, QUESTIONS WERE ANSWERED, AND THE PATIENT EXPRESSED UNDERSTANDING AND AGREES WITH THE PLAN. I, JAVIER HICKEY, DOCUMENTED THE ABOVE INFORMATION ACTING A SCRIBE FOR DR. VALDEZ. I HAVE REVIEWED THE ABOVE DOCUMENT, WRITTEN BY JAVIER PEDRO AND I VERIFY THAT IT IS ACCURATE PROCEDURE CODES 42797 INJ TRIGGER POINT 11/19 [facility] [place] DISPOSITION & COMMUNICATION FOLLOW UP 3 WEEKS ELECTRONICALLY SIGNED BY CARLOS VALDEZ MD ON 10/29/2017 AT 10:13 PM EST DISCLAIMER : THIS IS A VISIT SUMMARY EXTRACTED FROM THE [facility] [employer] CHART. IT IS NOT A COPY OF THE [facility] [employer] PROGRESS NOTE. JEVON
== END ==
LOC: M PAIN 11:45
PROVIDERS: ATTEND Anesthesiology
DX: G89.29 Other chronic pain (principal); M79.1 Myalgia; I10 Essential (primary) hypertension; E78.5 Hyperlipidemia, unspecified; Z79.891 Long term (current) use of opiate analgesic; Z79.899 Other long term (current) drug therapy; Z79.4 Long term (current) use of insulin; Z88.8 Allergy status to other drugs, medicaments and biological substances; Z91.030 Bee allergy status; Z87.891 Personal history of nicotine dependence
CPT/HCPCS: 20552; J3301

== ENCOUNTER → 2017-11-05 | Outpatient (CLI) | payer MEDICARE, MEDICAID ==
[~2017-11-05] MED LIST changes: -BUPIVACAINE HCL 0.25% 10 ML VIAL As Ordered ONE; -BUPIVACAINE HCL 0.25% 30 ML VIAL As Ordered ONE; -TRIAMCINOLONE ACETONIDE SUSP 40 MG/ML VIAL (J3301) As Ordered ONE; -diazePAM 5 MG TAB As Ordered ONE; -oxyCODONE 5MG TAB As Ordered ONE
--- NOTE | 2017-11-06 15:22 | REP ---
Bilateral hips and pelvis: Five views. History: Sacral ileitis. Findings: AP view of the pelvis shows an intact bony pelvic ring. SI joints and symphysis pubis are intact. AP and frog-leg views of each hip are obtained. Femoral heads are smooth and rounded. Hip joint spaces are preserved. Periarticular soft tissues are unremarkable. Impression: No erosive change or other evidence of arthropathy seen. Signed by Ronal Escobedo MD 11/06/2017 04:58 P
== END ==
LOC: M RAD 12:42
PROVIDERS: ATTEND Nurse Practitioner Family
DX: M46.1 Sacroiliitis, not elsewhere classified (principal)

== ENCOUNTER → 2017-11-05 | Outpatient (CLI) | payer MEDICARE, MEDICAID ==
--- NOTE | 2017-11-07 00:49 | ECWPNPC ---
PATIENT NAME: ZORAIDA BRAUN : 1955 GENDER: MALE VISIT DATE: 11/05/2017 DISCHARGE DATE: 11/05/17 1226 VISIT LOCKED DATE TIME: PHYSICIAN: NICK HAYES RESOURCE: NICK HAYES REASON FOR APPOINTMENT 1. POST TPI HISTORY OF PRESENT ILLNESS HISTORY OF PRESENT ILLNESS: PAIN THE PATIENT DESCRIBES THE PAIN... FALL RISK SCREENING: SCREENING :NO FALLS IN THE PAST YEAR TODAY'S VISIT: NOTES: RATES PAIN TODAY /10. IS S/P TRIGGER POINT INJECTIONS WITH STEROIDS TO BILATERAL LOW BACK COMPLETED ON 10/14/17. THIS WAS HELPFUL FOR THE TREATED AREA. IS STILL HAVING SEVERE PAIN IN THE HIP AREAS. IS HAVING INTERMITTANT SEVERE SPASM IN LOW BACK. IS HAVING A HARD TIME FINDING A COMFORTABLE POSITION. SLEEP IS DISRUPTED AND DOES NOT FEEL RESTED. DESCRIBES PAIN CONSTANT . CURRENT MEDICATIONS TAKING GABAPENTIN 400 MG CAPSULE 1 CAPSULE ORALLY THREE TIMES A DAY TAKING OXYCODONE HCL 5 MG TABLET 1 TABLET NEEDED ORALLY EVERY 6 HOURS PRN TAKING FERROUS SULFATE 325 MG CAPSULE 1 CAP ORALLY ONCE A DAY TAKING IRBESARTAN 150 MG TABLET 1 TABLET ORALLY ONCE A DAY TAKING AMBIEN 10 MG TABLET 1 TAB ORAL BEFORE BEDTIME TAKING DESONIDE 0.05 % OINTMENT 1 APPLICATION TO AFFECTED AREA EXTERNALLY TWICE A DAY NEEDED TAKING NEXIUM 40 MG CAPSULE DELAYED RELEASE 1 CAPSULE ORALLY ONCE A DAY TAKING VITAMIN D (ERGOCALCIFEROL) 57301 UNIT CAPSULE 1 CAPSULE ORALLY WEEKLY TAKING VICTOZA 18 MG/3ML SOLUTION PEN-INJECTOR 1.2 MG SUBCUTANEOUS DAILY TAKING MULTI ADULT GUMMIES - TABLET CHEWABLE 2 CHEWABLES ORALLY DAILY TAKING LIPITOR 10 MG TABLET 1 TABLET ORALLY ONCE A DAY TAKING CALCIUM 600 MG TABLET 1 TABLET WITH MEALS ORALLY DAILY TAKING KRILL OIL 500 MG CAPSULE 1 CAP ORALLY DAILY TAKING COLACE 100 MG CAPSULE 1 CAPSULE NEEDED ORALLY ONCE A DAY TAKING CLOBETASOL & CLOBETASOL EMUL 0.05 & 0.05 % MISCELLANEOUS EXTERNALLY NEEDED MEDICATION LIST REVIEWED AND RECONCILED WITH THE PATIENT PAST MEDICAL HISTORY HTN CHRONIC PAIN KIDNEY STONE ED RLS TESTICULAR HYPOFUNCTION SLEEP APNEA VITAMIN B 12 DEFICIENCY ANXIETY ARTHRITIS TIA HYPERLIPIDEMIA HYPOTHYROIDISM OSTEOPENIA NEUROPATHY PSORIASIS PULMONARY EMBOLISM COLON POLYP VITAMIN D DEFICIENCY IRRITABLE COLON CHRONIC PEPTIC ULCER INSOMNIA FIBROMYALGIA PRNEOMOTHORAX DIABETES/ ELEVATED A1C HAMMERTOES RIGHT AND LEFT FEET FUNGAL INFECTION TOENAILS BOTH FEET ALLERGIES TOPIRAMATE: HEART PALPITATIONS: ALLERGY GEMFIBROZIL: UNKNOWN: ALLERGY NIACIN: UNKNOWN: ALLERGY BEE STINGS: SWELLING, BLOOD POISONING: ALLERGY LEVAQUIN: SWELLING: ALLERGY SURGICAL HISTORY BROKEN LEFT LEG 4 SURGERIES 1970,1971, 1973 URETHRA RECONSTRUCTION SURGERY 1975 ORAL SUGERY 26 TEETH EXTRACTED 1981 CARDIAC CATH 1998 BILATERAL INGUINAL HERNIA 2000 COLONOSCOPY AND ENDOSCOPY 1998 COLONOSCOPY 2 TIMES [id number] COLONOSCOPY AND ENDOSCOPY 2005 COLONOSCOPY 2007 COLONOSCOPY/GASTROSCOPY 06/28/2009 RIGHT SHOULDER ROTATOR CUFF REPAIR 05/02/2010 LEFT SHOULDER ROTATOR CUFF REPAIR 04/12/2011 RIGHT CARPAL TUNNEL RELEASE 06/2011 LEFT CARPAL TUNNEL RELEASE 08/2011 RIGHT AND LEFT EYE-LID LIFT 08/2011 ORAL SURGERY 10/13/11 SKIN CANCER REMOVED FROM LEFT ELBOW 06/29/12 LESION REMOVED LEFT LEG, 2 NODULES NEAR LEFT ELBOW 2013 LESION REMOVED R.LEG 12/02/14 PNEUMOTHORAX RIGHT LUNG 04/25/15 PNEUMOTHORAX RIGHT LUNG 04/28/15 PULMONARY EMBOLISM BOTH LUNGS 05/19/15 PNEUMOTHORAX RIGHT LUNG, HEMORRHAGE 08/13/15 RIGHT LUNG REPAIR 08/18/15 HOSPITALIZATION/MAJOR DIAGNOSTIC PROCEDURE SURGICAL HISTORY REVIEW OF SYSTEMS REVIEWED BY: PROVIDER: . CONSTITUTIONAL: ANY CHANGE IN YOUR MEDICAL CONDITION? NO . CHILLS NO . FEVER NO . INFECTION: DO YOU HAVE NEW INFECTIONS? NO . DO YOU HAVE HISTORY OF MRSA? NO . MUSCULOSKELETAL: ANY NEW PATTERNS OF PAIN OR NUMBNESS? NO . GASTROENTEROLOGY: ANY NEW CHANGE IN BOWEL CONTROL? NO . GENITOURINARY: ANY NEW CHANGE IN BLADDER CONTROL? NO . IS THERE A CHANCE YOU COULD BE ? NO . HEMATOLOGY/LYMPH: DO YOU TAKE ANY BLOOD THINNERS? (FOR EXAMPLE- COUMADIN, PLAVIX, AGGRENOX, PLATEL, PRADAXA, OR XARELTO) NO . WHEN WAS YOUR LAST DOSE? DATE: TIME: . NEUROLOGY: HAVE YOU FALLEN IN THE PAST 6 MONTHS? NO . ANY NEW EXTREMITY NUMBNESS OR WEAKNESS? NO . CARDIOLOGY: DO YOU HAVE A PACEMAKER OR DEFIBRILLATOR? NO . RESPIRATORY: HAVE YOU BEEN SICK IN THE PAST WEEK? NO . FEVER NO . FLU LIKE SYMPTOMS? NO . COUGH NO . INTEGUMENTARY: DO YOU HAVE ANY RASHES OR OPEN SORES? NO . ALLERGIC/IMMUNO: ARE YOU ALLERGIC TO SHELLFISH OR IV DYE? NO . ANY NEW ALLERGIES? NO . PSYCHIATRIC: DO YOU HAVE THOUGHTS OF HURTING YOURSELF OR SOMEONE ELSE? NO . ARE YOU ABUSED, NEGLECTED, OR IN AN UNSAFE ENVIRONMENT? NO . ENDOCRINOLOGY: ARE YOU DIABETIC? YES . OTHER: DO YOU NEED ANY PRESCRIPTIONS? NO . IF YES, PLEASE LIST: ____ . ANY NEW PROBLEMS WITH YOUR MEDICATIONS? NO . WHEN DID YOU LAST EAT? ____ . WHEN DID YOU LAST DRINK? ____ . WHAT DID YOU LAST DRINK? ____ . NAME OF PERSON DRIVING YOU HOME? ____ . DO YOU HAVE ANY OTHER QUESTIONS OR CONCERNS NO . VITAL SIGNS WT 307 LBS, HT 5'9'', BMI 45.33 INDEX, BP 141/84 MM HG, HR 73 /MIN, RR 18 /MIN, TEMP 97.3 F, OXYGEN SAT % 96%, NA INITIALS SC 11:34, REVIEWED BY: CHAR. EXAMINATION GENERAL EXAMINATION: PSYCHALERT , ORIENTED X 3 , APPROPRIATE MOOD AND AFFECT . LUNGS:CLEAR TO AUSCULTATION BILATERALLY. HEART:HEART RATE REGULAR. MUSCULOSKELETAL:POINT TENDERNESS OVER BILATERAL HIP/TROCANTER BURSA. POSITVE KYLAH SIGN RIGHT >LEFT , TRIGGER POINTS:, ELICITED WITH PALPATION OVER LUMBAR PARAVERTEBRAL MUSCLES AND INTO THE SACRUM. RESTRICTION OF ROM IN THIS AREA. SLOW TO RISE TO STANDING POSITION. GAIT WIDEBASED, NONANTALGIC. 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 PREVENTIVE MEDICINE PAIN CLINIC TEACHING: PROCEDURE TEACHING PRE HIP BURSA INJECTION INSTRUCTIONS REVIEWED WITH PT. VERBALIZED UNDERTANDING.. PROCEDURE CODES FA211 ESTABILISHED PATIENT THE [facility] FACILITY CHARGE [id number] PAIN ASSESS POS TOOL F/U PLAN DOC G8427 DOC MEDS VERIFIED W/PT OR RE DISPOSITION & COMMUNICATION FOLLOW UP AFTER INJECTION (REASON: CHECK AUTH FOR BILATERAL HIP BURSA INJECTION) ELECTRONICALLY SIGNED BY MARK MERA ON 11/06/2017 AT 06:36 PM EST DISCLAIMER : THIS IS A VISIT SUMMARY EXTRACTED FROM THE [facility] CHART. IT IS NOT A COPY OF THE [employer] PROGRESS NOTE. JEVON
== END ==
LOC: M PAIN 11:15
PROVIDERS: ATTEND Nurse Practitioner Family
DX: G89.29 Other chronic pain (principal); M46.1 Sacroiliitis, not elsewhere classified; M70.62 Trochanteric bursitis, left hip; M70.61 Trochanteric bursitis, right hip; M79.1 Myalgia; I10 Essential (primary) hypertension; G25.81 Restless legs syndrome; G47.30 Sleep apnea, unspecified; F41.9 Anxiety disorder, unspecified; E03.9 Hypothyroidism, unspecified; E55.9 Vitamin D deficiency, unspecified; E11.9 Type 2 diabetes mellitus without complications; Z88.8 Allergy status to other drugs, medicaments and biological substances; Z91.030 Bee allergy status; Z79.891 Long term (current) use of opiate analgesic; Z79.4 Long term (current) use of insulin; Z79.899 Other long term (current) drug therapy

== ENCOUNTER → 2017-12-03 | Outpatient (CLI) | payer MEDICARE, MEDICAID ==
[2017-12-03 15:34] LABS: HEMATOCRIT 41.8 % (42.0-52.0); HEMOGLOBIN 14.6 g/dl (14.0-18.0); MEAN CORPUSCULAR HEMOGLOBIN 32.2 pg (27.0-33.0); MEAN CORPUSCULAR HGB CONC 34.9 g/dl (32.0-36.5); MEAN CORPUSCULAR VOLUME 92.1 fl (80.0-96.0); PLATELET COUNT, AUTOMATED 224 10^3/uL (150-450); RED BLOOD COUNT 4.54 10^6/uL (4.30-6.10); WHITE BLOOD COUNT 6.1 10^3/uL (4.0-10.0)
[2017-12-03 16:01] LABS: ANION GAP 6 MEQ/L (8-16); BLOOD UREA NITROGEN 16 MG/DL (7-18); CARBON DIOXIDE LEVEL 28 MEQ/L (21-32); CHLORIDE LEVEL 106 MEQ/L (98-107); CREATININE FOR GFR 0.89 MG/DL (0.70-1.30); GLOMERULAR FILTRATION RATE > 60.0 (>49); GLUCOSE, FASTING 101 MG/DL (80-110); POTASSIUM SERUM 4.3 MEQ/L (3.5-5.1); SODIUM LEVEL 140 MEQ/L (136-145)
== END ==
LOC: M LAB 15:09
DX: Z01.818 Encounter for other preprocedural examination (principal); M20.41 Other hammer toe(s) (acquired), right foot; M20.42 Other hammer toe(s) (acquired), left foot

== ENCOUNTER → 2017-12-03 | Outpatient (CLI) | payer MEDICARE, MEDICAID ==
[~2017-12-03] MED LIST changes: -/DULO30CA; -/ESOM40CA; -/ESOM40CA OR; -/TAMS4CA OR; -ALLE25CA OR; -AMBI10TA OR; -AMRIX ER; -AMRIX ER OR; -ARTHROTEC OR; -ASTELIN NASAL SPRAY; -AVAP150T; -AVAP150T OR; +BUPIVACAINE HCL 0.25% 30 ML VIAL As Ordered; -CALCCHW12; -CALCCHW12 OR; -CLOB-25 EX; -COLA100C5 PO; -CRES5TAB; -CRES5TAB OR; -CYAN1000VL IM; -DARV100T; -DARV100T OR; -DESO0.0522 EXT; -DRIS50002 PO; -FERR1TAB8 PO; -FISH500C PO; -FOLI1TAB; -FOLI1TAB OR; -FOLI400T PO; -GABA-282 PO; -GABA-283 PO; -GABA300C2 PO; -HYDR25TA8 PO; -IBUP-1022 PO; -IBUP600T OR; -IBUP800T; -IRBE150T12 PO; +ISOVUE-M 300 61% 15ML VIAL (Q9967) As Ordered; -LEVO25TA2 OR; +LIDOCAINE 1% SDV INJ 30 ML VIAL As Ordered; -LIPI10TA PO; -LORA0.5T OR; -MAGN500T5 PO; -MORP15TA6 PO; -MULT1CHW26 PO; -MULTIVIT OR; -NEXI40CA PO; -OXYC-517 PO; -OXYC10TA12 OR; -OXYC15TA66 PO; -REMICADE; -REMICADE IV; -SALI0.6523; -SAVELLA OR; -SERO50TA3 PO; -TESTPOW5 IM; -THERGRAN; -TRAM50TA2; -TRAM50TA2 OR; -TRAM50TA2 PO; -TRAZ100T OR; +TRIAMCINOLONE ACETONIDE SUSP 40 MG/ML VIAL (J3301) As Ordered; -VICT18IN SC; -VIIBRYD PO; -VITA100T IM; -VITA25003; -VITA50TA12; -VITAMIN D2 PO; -VITAMIN D50000 UNT; -VITAMIN D50000 UNT OR; -WARF4TAB52 PO; -ZETI10TA OR; -ZOLP10TA2 PO; -celebrex PO; +diazePAM 5 MG TAB As Ordered; -diclofenac PO; +oxyCODONE 5MG TAB As Ordered
== END ==
LOC: M PAIN 11:30
DX: M70.61 Trochanteric bursitis, right hip (principal); M70.62 Trochanteric bursitis, left hip; E11.9 Type 2 diabetes mellitus without complications; I10 Essential (primary) hypertension; G25.81 Restless legs syndrome; G47.30 Sleep apnea, unspecified; F41.9 Anxiety disorder, unspecified; M19.90 Unspecified osteoarthritis, unspecified site; E78.5 Hyperlipidemia, unspecified; E03.9 Hypothyroidism, unspecified; M81.0 Age-related osteoporosis without current pathological fracture; L40.9 Psoriasis, unspecified; E55.9 Vitamin D deficiency, unspecified; M79.7 Fibromyalgia; Z88.8 Allergy status to other drugs, medicaments and biological substances; Z86.73 Personal history of transient ischemic attack (TIA), and cerebral infarction without residual deficits; Z91.030 Bee allergy status; Z79.4 Long term (current) use of insulin; Z79.899 Other long term (current) drug therapy; M20.41 Other hammer toe(s) (acquired), right foot; M20.42 Other hammer toe(s) (acquired), left foot
CPT/HCPCS: J3301

== ENCOUNTER → 2017-12-17 | Outpatient (CLI) | payer MEDICARE, MEDICAID | LOC: M PAIN 11:00 | DX: M70.61 Trochanteric bursitis, right hip (principal); M70.62 Trochanteric bursitis, left hip; M79.1 Myalgia; I10 Essential (primary) hypertension; E11.9 Type 2 diabetes mellitus without complications; G25.81 Restless legs syndrome; G47.30 Sleep apnea, unspecified; F41.9 Anxiety disorder, unspecified; E78.5 Hyperlipidemia, unspecified; E03.9 Hypothyroidism, unspecified; E55.9 Vitamin D deficiency, unspecified; G47.00 Insomnia, unspecified; M85.80 Other specified disorders of bone density and structure, unspecified site; Z79.4 Long term (current) use of insulin; Z79.899 Other long term (current) drug therapy; Z88.8 Allergy status to other drugs, medicaments and biological substances; Z91.030 Bee allergy status; Z87.891 Personal history of nicotine dependence | CPT/HCPCS: G0463 ==

== ENCOUNTER 2017-12-25 08:24 | Day surgery (SDC) | payer MEDICARE, MEDICAID ==
[2017-12-25] MEDS ORDERED: LIDOCAINE 1% MDV 20ML VIAL SQ (08:45)
[2017-12-25] MEDS ORDERED: fentaNYL 100 MCG/2 ML INJECTION (J3010) As Ordered (08:56)
[2017-12-25] MEDS ORDERED: MIDAZOLAM INJ 2 MG/2 ML VIAL (J2250) As Ordered (08:56)
[2017-12-25] MEDS: LR 1,000 ML IV (09:16)
[2017-12-25] MEDS ORDERED: dexameTHASONE 4 MG/ML 1ML VIAL (J1100) As Ordered ×2 (09:22→10:04)
[2017-12-25 09:28] LABS: BEDSIDE GLUCOSE 106 MG/DL (80-115)
[2017-12-25] MEDS ORDERED: PROPOFOL 200 MG/20 ML VIAL As Ordered ×4 (09:48→10:04)
[2017-12-25] MEDS: BUPIVACAINE HCL 0.5% 30 ML VIAL As Ordered (09:51)
[2017-12-25] MEDS: LIDOCAINE 1% MDV 20ML VIAL As Ordered (09:51)
[2017-12-25] MEDS ORDERED: KETOROLAC 60 MG/2 ML VIAL (J1885) As Ordered (10:04)
[2017-12-25] MEDS ORDERED: LIDOCAINE 2% INJ 100 MG/5 ML SDV (FOR ANES.) As Ordered (10:04)
[2017-12-25] MEDS ORDERED: PHENYLephrine HCL 500 MCG/5 ML (100MCG/ML) SYRINGE (J2370) As Ordered (10:04)
[2017-12-25] MEDS ORDERED: ONDANSETRON 4MG/2ML VIAL (J2405) As Ordered (10:04)
[2017-12-25] MEDS ORDERED: LR 1,000 ML IV (11:15)
[2017-12-25] MEDS ORDERED: PERCOCET 5MG/325MG TAB PO (11:15)
[2017-12-25] MEDS ORDERED: ONDANSETRON 4MG/2ML VIAL (J2405) IV (11:15)
== END 2017-12-25 12:34 | disposition home or self-care (01) ==
LOC: M SDC 08:24
DX: M20.41 Other hammer toe(s) (acquired), right foot (principal); M20.42 Other hammer toe(s) (acquired), left foot; I10 Essential (primary) hypertension; E11.9 Type 2 diabetes mellitus without complications; I20.9 Angina pectoris, unspecified; I49.1 Atrial premature depolarization; I49.3 Ventricular premature depolarization; E78.00 Pure hypercholesterolemia, unspecified; R60.0 Localized edema; I73.9 Peripheral vascular disease, unspecified; E03.9 Hypothyroidism, unspecified; E04.1 Nontoxic single thyroid nodule; K57.32 Diverticulitis of large intestine without perforation or abscess without bleeding; K44.9 Diaphragmatic hernia without obstruction or gangrene; K21.9 Gastro-esophageal reflux disease without esophagitis; D64.9 Anemia, unspecified; R29.898 Other symptoms and signs involving the musculoskeletal system; M12.9 Arthropathy, unspecified; M54.30 Sciatica, unspecified side; M79.7 Fibromyalgia; M81.0 Age-related osteoporosis without current pathological fracture; L40.9 Psoriasis, unspecified; F41.9 Anxiety disorder, unspecified; F32.9 Major depressive disorder, single episode, unspecified; G43.909 Migraine, unspecified, not intractable, without status migrainosus; G62.9 Polyneuropathy, unspecified; R06.02 Shortness of breath; G47.33 Obstructive sleep apnea (adult) (pediatric); T88.59XD Other complications of anesthesia, subsequent encounter; Z88.1 Allergy status to other antibiotic agents; Z88.8 Allergy status to other drugs, medicaments and biological substances; Z91.030 Bee allergy status; Z79.899 Other long term (current) drug therapy; Z79.01 Long term (current) use of anticoagulants; Z87.891 Personal history of nicotine dependence; Z87.81 Personal history of (healed) traumatic fracture; Z86.73 Personal history of transient ischemic attack (TIA), and cerebral infarction without residual deficits; Z86.711 Personal history of pulmonary embolism
CPT/HCPCS: 28285

== ENCOUNTER → 2018-01-27 | Outpatient (CLI) | payer MEDICARE, MEDICAID | LOC: M PAIN 13:30 | DX: M70.61 Trochanteric bursitis, right hip (principal); M70.62 Trochanteric bursitis, left hip; M79.1 Myalgia; I10 Essential (primary) hypertension; E11.9 Type 2 diabetes mellitus without complications; E78.5 Hyperlipidemia, unspecified; E55.9 Vitamin D deficiency, unspecified; Z79.891 Long term (current) use of opiate analgesic; Z79.899 Other long term (current) drug therapy; Z88.8 Allergy status to other drugs, medicaments and biological substances; Z91.030 Bee allergy status; Z87.891 Personal history of nicotine dependence | CPT/HCPCS: G0463 ==

== ENCOUNTER → 2018-03-18 | Outpatient (CLI) | payer MEDICARE, MEDICAID | LOC: M PAIN 13:15 | DX: G89.29 Other chronic pain (principal); M70.61 Trochanteric bursitis, right hip; M70.62 Trochanteric bursitis, left hip; M79.1 Myalgia; I10 Essential (primary) hypertension; N52.9 Male erectile dysfunction, unspecified; E29.1 Testicular hypofunction; G47.30 Sleep apnea, unspecified; E53.8 Deficiency of other specified B group vitamins; F41.9 Anxiety disorder, unspecified; E78.5 Hyperlipidemia, unspecified; E03.9 Hypothyroidism, unspecified; M85.80 Other specified disorders of bone density and structure, unspecified site; L40.9 Psoriasis, unspecified; E55.9 Vitamin D deficiency, unspecified; E11.40 Type 2 diabetes mellitus with diabetic neuropathy, unspecified; K27.9 Peptic ulcer, site unspecified, unspecified as acute or chronic, without hemorrhage or perforation; M20.41 Other hammer toe(s) (acquired), right foot; M20.42 Other hammer toe(s) (acquired), left foot; Z86.711 Personal history of pulmonary embolism; Z86.73 Personal history of transient ischemic attack (TIA), and cerebral infarction without residual deficits; Z87.891 Personal history of nicotine dependence; Z79.891 Long term (current) use of opiate analgesic; Z79.899 Other long term (current) drug therapy; Z91.030 Bee allergy status; Z88.1 Allergy status to other antibiotic agents; Z88.8 Allergy status to other drugs, medicaments and biological substances | CPT/HCPCS: G0463 ==

== ENCOUNTER → 2018-05-23 | Outpatient (CLI) | payer MEDICARE, MEDICAID | LOC: M PAIN 11:15 | DX: M70.61 Trochanteric bursitis, right hip (principal); M70.62 Trochanteric bursitis, left hip; M79.1 Myalgia; E11.9 Type 2 diabetes mellitus without complications; I10 Essential (primary) hypertension; G47.30 Sleep apnea, unspecified; F41.9 Anxiety disorder, unspecified; M19.90 Unspecified osteoarthritis, unspecified site; E78.5 Hyperlipidemia, unspecified; E03.9 Hypothyroidism, unspecified; M85.80 Other specified disorders of bone density and structure, unspecified site; L40.9 Psoriasis, unspecified; E55.9 Vitamin D deficiency, unspecified; G47.00 Insomnia, unspecified; Z79.4 Long term (current) use of insulin; Z79.899 Other long term (current) drug therapy; Z88.8 Allergy status to other drugs, medicaments and biological substances; Z91.030 Bee allergy status; Z86.73 Personal history of transient ischemic attack (TIA), and cerebral infarction without residual deficits; Z86.711 Personal history of pulmonary embolism; Z87.891 Personal history of nicotine dependence | CPT/HCPCS: G0463 ==

== ENCOUNTER → 2019-08-12 | Outpatient (REF) ==
[~2019-08-12] MED LIST changes: +ALLE25CA OR; +AMBI10TA OR; +AMRIX ER; +AMRIX ER OR; +ARTHROTEC OR; +ASTELIN NASAL SPRAY; +AVAP150T; +AVAP150T OR; -BUPIVACAINE HCL 0.25% 30 ML VIAL As Ordered; +CALC600T31 PO; +CALCCHW12; +CALCCHW12 OR; +CLOB-25 EX; +CLOB-25 TOP; +COLA100C5 PO; +CRES5TAB; +CRES5TAB OR; +CYAN1000VL IM; +CYMB1CAP5; +DARV100T; +DARV100T OR; +DESO0.0522 EXT; +DOCQ100C5 PO; +DRIS50003 PO; +FERR1TAB8 PO; +FISH500C PO; +FLOM0.4C39 OR; +FOLI1TAB; +FOLI1TAB OR; +FOLI400T PO; +GABA-843 PO; +GABA-845 PO; +GABA300C2 PO; +HYDR-3713 PO; +HYDR25TA8 PO; +IBUP-1022 PO; +IBUP-1114 PO; +IBUP600T OR; +IBUP800T; +IRBE150T12 PO; -ISOVUE-M 300 61% 15ML VIAL (Q9967) As Ordered; +KRIL1CAP6 PO; +LEVO25TA2 OR; -LIDOCAINE 1% SDV INJ 30 ML VIAL As Ordered; +LIPI10TA PO; +LORA0.5T OR; +MAGN500T5 PO; +MORP15TA6 PO; +MULT1CHW26 PO; +MULTIVIT OR; +NEXI1CAP3; +NEXI1CAP3 OR; +NEXI40CA PO; +OXYC-517 PO; +OXYC10TA12 OR; +OXYC15TA66 PO; +REMICADE; +REMICADE IV; +SALI0.6528; +SAVELLA OR; +SERO50TA27 PO; +TESTPOW5 IM; +THERGRAN; +TRAM50TA2; +TRAM50TA2 OR; +TRAM50TA2 PO; +TRAZ100T OR; -TRIAMCINOLONE ACETONIDE SUSP 40 MG/ML VIAL (J3301) As Ordered; +VICT18IN SC; +VIIBRYD PO; +VITA100067 PO; +VITA100T IM; +VITA25003; +VITA50TA12; +VITAMIN D2 PO; +VITAMIN D50000 UNT; +VITAMIN D50000 UNT OR; +WARF4TAB52 PO; +ZETI10TA OR; +ZOLP10TA2 PO; +celebrex PO; -diazePAM 5 MG TAB As Ordered; +diclofenac PO; -oxyCODONE 5MG TAB As Ordered
== END ==
LOC: M LAB LCGH 17:24
PROVIDERS: ATTEND Physician Assistant
DX: D48.5 Neoplasm of uncertain behavior of skin (principal)

== ENCOUNTER → 2020-08-09 | Outpatient (REF) | payer MEDICARE, MEDICAID ==
[~2020-08-09] MED LIST changes: -IRBE150T12 PO; +IRBE150T7 PO
== END ==
LOC: M LAB REF 18:28
PROVIDERS: ATTEND Dermatology
DX: Z85.828 Personal history of other malignant neoplasm of skin (principal)

== ENCOUNTER → 2021-10-11 | Outpatient (REF) | payer MEDICARE, MEDICAID ==
[~2021-10-11] MED LIST changes: -FOLI400T PO; +FOLI400T13 PO; +GABA-282 PO; +GABA-283 PO; -GABA-843 PO; -GABA-845 PO
[2021-10-11 17:59] LABS: APPEARANCE, URINE CLEAR (CLEAR); BACTERIA, URINE AUTO NEGATIVE (NEGATIVE); BILIRUBIN, URINE AUTO NEGATIVE (NEGATIVE); BLOOD, URINE BLOOD NEGATIVE (NEGATIVE); COLOR, URINE YELLOW (YELLOW); GLUCOSE, URINE (UA) AUTO NEGATIVE (NEGATIVE); KETONE, URINE AUTO NEGATIVE (NEGATIVE); LEUKOCYTE ESTERASE, URINE AUTO NEGATIVE (NEGATIVE); NITRITE, URINE AUTO NEGATIVE (NEGATIVE); PROTEIN, URINE AUTO NEGATIVE (NEGATIVE); RBC, URINE AUTO 0 /HPF (0-3); SPECIFIC GRAVITY URINE AUTO 1.017 (1.002-1.035); SQUAMOUS EPITHELIAL CELL UR AU 0 /HPF (0-6); UROBILINOGEN, URINE AUTO 0.2 mg/dL (0.0-2.0); WBC, URINE AUTO 0 /HPF (0-3)
== END ==
LOC: M SMT 16:46
PROVIDERS: ATTEND Urology
DX: R97.20 Elevated prostate specific antigen [PSA] (principal)

== ENCOUNTER → 2022-06-14 | Outpatient (REF) | payer MEDICARE, MEDICAID | LOC: M SFHCDERM 17:26 | PROVIDERS: ATTEND Physician Assistant | DX: D23.71 Other benign neoplasm of skin of right lower limb, including hip (principal) ==

== ENCOUNTER → 2022-11-01 | Outpatient (REF) | payer MEDICARE, MEDICAID | LOC: M SFHCDERM 16:33 | PROVIDERS: ATTEND Dermatology | DX: D48.9 Neoplasm of uncertain behavior, unspecified (principal); L57.0 Actinic keratosis ==

== ENCOUNTER → 2024-02-25 | Outpatient (CLI) | payer MEDICARE, MEDICAID ==
[~2024-02-25] MED LIST changes: -GABA-283 PO; +GABA-284 PO; +IRBE150T27 PO; -IRBE150T7 PO
== END ==
LOC: M CARPUL 12:23
PROVIDERS: ATTEND Internal Medicine Pulmonary Disease
DX: R05.9 Cough, unspecified (principal)

== ENCOUNTER → 2024-04-09 | Outpatient (CLI) | payer MEDICARE, MEDICAID ==
[~2024-04-09] MED LIST changes: +METHACHOLINE KIT (6 VIAL.NEB PREMIX) INH ONE
== END ==
LOC: M CARPUL 12:33
PROVIDERS: ATTEND Internal Medicine Pulmonary Disease
DX: R05.9 Cough, unspecified (principal)
CPT/HCPCS: 94070; 95070; J7674

== ENCOUNTER → 2024-09-03 | Outpatient (CLI) | payer MEDICARE, MEDICAID ==
[~2024-09-03] MED LIST changes: +GABA-1172 PO; -GABA-282 PO; -METHACHOLINE KIT (6 VIAL.NEB PREMIX) INH ONE
[2024-09-07 13:33] LABS: PSA FREE 0.2 ng/mL; PSA TOTAL 1.6 ng/mL (< OR = 4.0)
== END ==
LOC: M RAD 16:57
PROVIDERS: ATTEND Nurse Practitioner Family
DX: R97.20 Elevated prostate specific antigen [PSA] (principal); Z87.442 Personal history of urinary calculi

== ENCOUNTER → 2024-09-03 | Outpatient (REF) | payer MEDICARE, MEDICAID ==
[2024-09-04 12:20] LABS: APPEARANCE, URINE CLEAR (CLEAR); BACTERIA, URINE AUTO NEGATIVE (NEGATIVE); BILIRUBIN, URINE AUTO NEGATIVE (NEGATIVE); BLOOD, URINE BLOOD NEGATIVE (NEGATIVE); COLOR, URINE STRAW (YELLOW); GLUCOSE, URINE (UA) AUTO NEGATIVE (NEGATIVE); KETONE, URINE AUTO NEGATIVE (NEGATIVE); LEUKOCYTE ESTERASE, URINE AUTO NEGATIVE (NEGATIVE); NITRITE, URINE AUTO NEGATIVE (NEGATIVE); PROTEIN, URINE AUTO NEGATIVE (NEGATIVE); RBC, URINE AUTO 0 /HPF (0-3); SPECIFIC GRAVITY URINE AUTO 1.004 (1.002-1.035); SQUAMOUS EPITHELIAL CELL UR AU 0 /HPF (0-6); UROBILINOGEN, URINE AUTO 0.2 mg/dL (0.0-2.0); WBC, URINE AUTO 0 /HPF (0-3)
== END ==
LOC: M SMT 10:01
PROVIDERS: ATTEND Nurse Practitioner Family
DX: Z87.442 Personal history of urinary calculi (principal); Z79.899 Other long term (current) drug therapy

== ENCOUNTER → 2024-09-16 | Outpatient (CLI) | payer MEDICARE, MEDICAID | LOC: M SOG 07:30 | PROVIDERS: ATTEND Orthopaedic Surgery | DX: M25.562 Pain in left knee (principal) ==

== ENCOUNTER → 2024-09-24 | Outpatient (CLI) | payer MEDICARE, MEDICAID | LOC: M SOG 08:08 | PROVIDERS: ATTEND Orthopaedic Surgery | DX: M25.511 Pain in right shoulder (principal); M25.512 Pain in left shoulder ==

== ENCOUNTER → 2024-10-01 | Outpatient (CLI) | payer MEDICARE, MEDICAID | LOC: M PLARAD 12:58 | PROVIDERS: ATTEND Orthopaedic Surgery | DX: M25.562 Pain in left knee (principal); M17.12 Unilateral primary osteoarthritis, left knee; S83.242A Other tear of medial meniscus, current injury, left knee, initial encounter; X58.XXXA Exposure to other specified factors, initial encounter; Y92.9 Unspecified place or not applicable; Y93.9 Activity, unspecified; Y99.9 Unspecified external cause status; S83.282A Other tear of lateral meniscus, current injury, left knee, initial encounter ==

== ENCOUNTER → 2024-11-25 | Outpatient (CLI) | payer MEDICARE, MEDICAID | LOC: M LAB 11:38 | PROVIDERS: ATTEND Nurse Practitioner Family | DX: R97.20 Elevated prostate specific antigen [PSA] (principal) ==

== ENCOUNTER → 2024-12-09 | Outpatient (REF) | payer MEDICARE, MEDICAID ==
[2024-12-09 15:54] LABS: APPEARANCE, URINE CLEAR (CLEAR); BACTERIA, URINE AUTO NEGATIVE (NEGATIVE); BILIRUBIN, URINE AUTO NEGATIVE (NEGATIVE); BLOOD, URINE BLOOD NEGATIVE (NEGATIVE); COLOR, URINE YELLOW (YELLOW); GLUCOSE, URINE (UA) AUTO NEGATIVE (NEGATIVE); KETONE, URINE AUTO NEGATIVE (NEGATIVE); LEUKOCYTE ESTERASE, URINE AUTO NEGATIVE (NEGATIVE); NITRITE, URINE AUTO NEGATIVE (NEGATIVE); PROTEIN, URINE AUTO NEGATIVE (NEGATIVE); RBC, URINE AUTO 0 /HPF (0-3); SPECIFIC GRAVITY URINE AUTO 1.004 (1.002-1.035); SQUAMOUS EPITHELIAL CELL UR AU 0 /HPF (0-6); UROBILINOGEN, URINE AUTO 0.2 mg/dL (0.0-2.0); WBC, URINE AUTO 0 /HPF (0-3)
== END ==
LOC: M SMT 15:16
PROVIDERS: ATTEND Nurse Practitioner Family
DX: R31.29 Other microscopic hematuria (principal)

== ENCOUNTER → 2024-12-11 | Outpatient (CLI) | payer MEDICARE, MEDICAID | LOC: M PLAIMG 13:04 | PROVIDERS: ATTEND Orthopaedic Surgery | DX: M25.512 Pain in left shoulder (principal); M75.42 Impingement syndrome of left shoulder; Z98.890 Other specified postprocedural states; S43.432A Superior glenoid labrum lesion of left shoulder, initial encounter; S46.012A Strain of muscle(s) and tendon(s) of the rotator cuff of left shoulder, initial encounter; M19.012 Primary osteoarthritis, left shoulder ==

== ENCOUNTER → 2024-12-14 | Outpatient (CLI) | payer MEDICARE, MEDICAID ==
[2024-12-14 17:29] LABS: BASO % 0.3 % (0.0-1.0); EOS # 0.2 10^3/uL (0.0-0.5); EOS % 2.1 % (0.0-3.0); HEMATOCRIT 43.5 % (42.0-52.0); HEMOGLOBIN 14.7 g/dl (13.5-17.5); LYMPH # 1.3 10^3/uL (1.5-5.0); LYMPH % 16.7 % (24.0-44.0); MEAN CORPUSCULAR HEMOGLOBIN 31.1 pg (27.0-33.0); MEAN CORPUSCULAR HGB CONC 33.8 g/dl (32.0-36.5); MONO # 0.7 10^3/uL (0.0-0.8); MONO % 8.9 % (2.0-8.0); NEUTROPHILS # 5.5 10^3/uL (1.5-8.5); NEUTROPHILS % 71.7 % (36.0-66.0); PLATELET COUNT, AUTOMATED 269 10^3/uL (150-450); RED BLOOD COUNT 4.73 10^6/uL (4.30-6.10); WHITE BLOOD COUNT 7.6 10^3/uL (4.0-10.0)
[2024-12-14 17:40] LABS: INR 0.94; PROTHROMBIN TIME 12.9 SECONDS (12.5-14.5)
[2024-12-14 18:04] LABS: ALBUMIN 3.7 G/DL (3.2-5.2); ALKALINE PHOSPHATASE 88 U/L (40-129); ALT/SGPT 28 U/L (7.0-40); AST/SGOT 30 U/L (<34); BILIRUBIN,TOTAL 0.7 MG/DL (0.3-1.2); BLOOD UREA NITROGEN 23 MG/DL (9-23); C REACTIVE PROTEIN QUANTITATIV 1.35 MG/DL (<1.0); CALCIUM LEVEL 8.8 MG/DL (8.3-10.6); CARBON DIOXIDE LEVEL 28 MMOL/L (20-31); CHLORIDE LEVEL 103 MMOL/L (98-107); CREATININE FOR GFR 0.99 MG/DL (0.70-1.30); GLOMERULAR FILTRATION RATE > 60.0 (>42); GLUCOSE, FASTING 102 MG/DL (74-106); HEMOGLOBIN A1c 5.2 % (4.0-6.0); SODIUM LEVEL 140 MMOL/L (136-145); TOTAL PROTEIN 6.8 G/DL (5.7-8.2)
[2024-12-14 18:06] LABS: TOTAL 25(OH) VITAMIN D 36.3 NG/ML (20.0-100.0)
== END ==
LOC: M LAB 16:46
PROVIDERS: ATTEND Orthopaedic Surgery
DX: M75.112 Incomplete rotator cuff tear or rupture of left shoulder, not specified as traumatic (principal); Z79.899 Other long term (current) drug therapy

== ENCOUNTER → 2024-12-17 | Outpatient (CLI) | payer MEDICARE, MEDICAID | LOC: M PLAIMG 11:33 | PROVIDERS: ATTEND Nurse Practitioner Family | DX: Z87.442 Personal history of urinary calculi (principal); K57.30 Diverticulosis of large intestine without perforation or abscess without bleeding ==

== ENCOUNTER 2025-02-15 09:56 | Day surgery (SDC) | payer MEDICARE, MEDICAID ==
[~2025-02-15] VITALS: Ht 177.8 cm; Wt 130.9 kg
[~2025-02-15 09:56] MED LIST changes: +ATOR1TAB21 PO; +CALC600T60 PO; +EQL50TAB2 PO; +ESOM40CA35 PO; +IRBE75TA11 PO; +LIDOCAINE 2% 100MG/5ML SDV (FOR ANES.) As Ordered ONE; +ONDANSETRON 4MG 2ML VIAL As Ordered ONE; +ROCURONIUM BROMIDE 50MG/5ML VIAL As Ordered ONE; +SEMA1PEN2; +SUGAMMADEX SODIUM 500 MG/5 ML VIAL (BRIDION) As Ordered ONE; +TAMS1CAP17 PO; +VITA100093 PO; +fentaNYL 100 MCG/2 ML INJECTION As Ordered ONE; +propofoL 200 MG/20 ML VIAL As Ordered ONE
[2025-02-15] MEDS ORDERED: MIDAZOLAM INJ 2MG/2ML VIAL As Ordered ONE (09:57)
[2025-02-15] MEDS ORDERED: LR 1,000 ML IV SCH ×2 (10:15→15:15)
[2025-02-15] MEDS: MIDAZOLAM INJ 2MG/2ML VIAL IV PRN (11:15)
[2025-02-15] MEDS: fentaNYL 100 MCG/2 ML INJECTION IV PRN (11:15)
[2025-02-15] MEDS: LIDOCAINE 1% SDV 5ML VIAL PN ONE (11:20)
[2025-02-15] MEDS: ROPIvacaine 0.5% 30ML VIAL PN ONE (11:20)
[2025-02-15] MEDS: dexAMETHasone 10MG/1ML VIAL PRES.FREE PN ONE (11:20)
[2025-02-15] MEDS ORDERED: ceFAZolin SOD 2 GM IV ONCE IV ONE (11:25)
[2025-02-15] MEDS: ceFAZolin SOD 3 GM in DEXTROSE 5% (D5W) MINI-BAG PLU 1... IV ONE (12:03)
[2025-02-15] MEDS ORDERED: ACETAMINOPHEN 1000MG/100ML IV BAG As Ordered ONE (12:10)
[2025-02-15] MEDS: EPINEPHrine 1MG/ML INJ 30ML MD-VIAL As Ordered ONE (12:30)
[2025-02-15] MEDS ORDERED: ePHEDrine SULFATE 25 MG/5 ML(5MG/ML) SYRINGE As Ordered ONE (14:07)
[2025-02-15] MEDS: LIDOCAINE 1% MDV 20ML VIAL As Ordered ONE (14:39)
[2025-02-15] MEDS: TRANEXAMIC ACID 100 MG/ML 10ML VIAL IV ONE (14:39)
[2025-02-15] MEDS ORDERED: fentaNYL 100 MCG/2 ML INJECTION IV PRN (15:15)
[2025-02-15] MEDS ORDERED: oxyCODONE 5MG TAB PO PRN (15:15)
[2025-02-15] MEDS ORDERED: ONDANSETRON 4MG 2ML VIAL IV PRN (15:15)
[2025-02-15] MEDS ORDERED: HYDROMORPHONE HCL 0.5 MG/ 0.5 ML SYRINGE IV PRN (15:15)
[2025-02-15] MEDS ORDERED: PERCOCET PO (15:30)
[2025-02-15 16:23] VITALS: BP 121/62; TEMP 97.4; O2SAT 95
== END 2025-02-15 16:25 | disposition home or self-care (01) ==
LOC: M SDC 09:56
PROVIDERS: ATTEND Orthopaedic Surgery
DX: M75.122 Complete rotator cuff tear or rupture of left shoulder, not specified as traumatic (principal); M19.012 Primary osteoarthritis, left shoulder; M25.712 Osteophyte, left shoulder; G47.30 Sleep apnea, unspecified; Z88.8 Allergy status to other drugs, medicaments and biological substances; Z88.1 Allergy status to other antibiotic agents; Z79.899 Other long term (current) drug therapy
CPT/HCPCS: 29827; C1713; J0131; J0171; J0690; J1100; J2250; J2405; J2795; J3010

== ENCOUNTER → 2025-04-02 | Outpatient (CLI) | payer MEDICARE, MEDICAID ==
[~2025-04-02] MED LIST changes: -LIDOCAINE 2% 100MG/5ML SDV (FOR ANES.) As Ordered ONE; -ONDANSETRON 4MG 2ML VIAL As Ordered ONE; +PERCOCET PO; -ROCURONIUM BROMIDE 50MG/5ML VIAL As Ordered ONE; -SUGAMMADEX SODIUM 500 MG/5 ML VIAL (BRIDION) As Ordered ONE; -fentaNYL 100 MCG/2 ML INJECTION As Ordered ONE; -propofoL 200 MG/20 ML VIAL As Ordered ONE
== END ==
LOC: M SOG 06:59
PROVIDERS: ATTEND Orthopaedic Surgery
DX: M75.122 Complete rotator cuff tear or rupture of left shoulder, not specified as traumatic (principal)

== ENCOUNTER 2025-09-29 11:33 | Day surgery (SDC) | payer MEDICARE, MEDICAID ==
[~2025-09-29] VITALS: Ht 177.8 cm; Wt 104.8 kg
[~2025-09-29 11:33] MED LIST changes: -EQL50TAB2 PO; -IBUP-1022 PO; +IBUP600T42 PO; +IBUP80TA; +LUBI24CA PO; +MIDAZOLAM INJ 2 MG/2 ML VIAL As Ordered ONE; +MULTTAB61 PO; +PHENYLEPHRINE 10% OPHTH SOL 5ML OD PRN; +VITA1TAB82 PO; +ZOLP10TA11 PO; -ZOLP10TA2 PO
[2025-09-29] MEDS: OFLOXACIN 0.3 % (OCUFLOX) OPTH SOL 5ML OD ONE (14:36)
[2025-09-29] MEDS: TROPICAMIDE 1% OPHTH SOLN 15ML OD SCH (14:36)
[2025-09-29] MEDS: LIDOCAINE 3.5% 1 ML OPHTH TOPICAL GEL OU ONE (14:36)
[2025-09-29] MEDS: CYCLOPENTOLATE 1% OPHTH SOLN 2 ML BTL OD SCH (14:36)
[2025-09-29] MEDS: PHENYLEPHRINE 2.5% OPHTH SOL 2ML OD SCH (14:36)
[2025-09-29] MEDS: CEFUROXIME 1 MG/0.1 ML INTRACAMERAL INJ As Ordered ONE (15:51)
[2025-09-29] MEDS: BSS IRRIG/VANCO(10MG)/TOBRA(5MG)/EPINEPH(1:1000-0.5CC)500ML BAG-ORONLY As Ordered ONE (15:51)
[2025-09-29] MEDS: LIDOCAINE 1% SDV 5 ML VIAL As Ordered ONE (15:51)
[2025-09-29 16:10] VITALS: BP 144/67; TEMP 97.7; O2SAT 99
[2025-10-01] MEDS ORDERED: IBUP-359 PO (08:44)
== END 2025-09-29 16:38 | disposition home or self-care (01) ==
LOC: M SDC 11:33
PROVIDERS: ATTEND Ophthalmology
DX: E11.36 Type 2 diabetes mellitus with diabetic cataract (principal); H25.11 Age-related nuclear cataract, right eye; H57.03 Miosis; I10 Essential (primary) hypertension; E03.9 Hypothyroidism, unspecified; E11.40 Type 2 diabetes mellitus with diabetic neuropathy, unspecified; J44.9 Chronic obstructive pulmonary disease, unspecified; E78.00 Pure hypercholesterolemia, unspecified; G47.30 Sleep apnea, unspecified; Z79.85 Long-term (current) use of injectable non-insulin antidiabetic drugs; Z79.899 Other long term (current) drug therapy; K21.9 Gastro-esophageal reflux disease without esophagitis; Z85.828 Personal history of other malignant neoplasm of skin; Z88.8 Allergy status to other drugs, medicaments and biological substances; Z88.1 Allergy status to other antibiotic agents; Z86.73 Personal history of transient ischemic attack (TIA), and cerebral infarction without residual deficits; Z86.711 Personal history of pulmonary embolism; N40.0 Benign prostatic hyperplasia without lower urinary tract symptoms
CPT/HCPCS: 66982; J0697; J2250; J3010; V2632

== ENCOUNTER 2025-10-06 10:45 | Day surgery (SDC) | payer MEDICARE, MEDICAID ==
[~2025-10-06] VITALS: Ht 177.8 cm; Wt 107.0 kg
[~2025-10-06 10:45] MED LIST changes: +IBUP-359 PO; -PHENYLEPHRINE 10% OPHTH SOL 5ML OD PRN; +PHENYLEPHRINE 10% OPHTH SOL 5ML OS PRN
[2025-10-06] MEDS: LIDOCAINE 3.5% 1 ML OPHTH TOPICAL GEL OU ONE (11:10)
[2025-10-06] MEDS: OFLOXACIN 0.3 % (OCUFLOX) OPTH SOL 5ML OS ONE (11:10)
[2025-10-06] MEDS: CYCLOPENTOLATE 1% OPHTH SOLN 2 ML BTL OS SCH (11:10)
[2025-10-06] MEDS: PHENYLEPHRINE 2.5% OPHTH SOL 2ML OS SCH (11:11)
[2025-10-06] MEDS: TROPICAMIDE 1% OPHTH SOLN 15ML OS SCH (11:11)
[2025-10-06] MEDS: LIDOCAINE 1% SDV 5 ML VIAL As Ordered ONE (11:32)
[2025-10-06] MEDS: CEFUROXIME 1 MG/0.1 ML INTRACAMERAL INJ As Ordered ONE (11:32)
[2025-10-06] MEDS: BSS IRRIG/VANCO(10MG)/TOBRA(5MG)/EPINEPH(1:1000-0.5CC)500ML BAG-ORONLY As Ordered ONE (11:32)
[2025-10-06 11:47] VITALS: BP 142/62; TEMP 98; O2SAT 97
== END 2025-10-06 12:07 | disposition home or self-care (01) ==
LOC: M SDC 10:45
PROVIDERS: ATTEND Ophthalmology
DX: E11.36 Type 2 diabetes mellitus with diabetic cataract (principal); H25.12 Age-related nuclear cataract, left eye; I10 Essential (primary) hypertension; J44.9 Chronic obstructive pulmonary disease, unspecified; E11.40 Type 2 diabetes mellitus with diabetic neuropathy, unspecified; E03.9 Hypothyroidism, unspecified; E78.00 Pure hypercholesterolemia, unspecified; N40.0 Benign prostatic hyperplasia without lower urinary tract symptoms; K44.9 Diaphragmatic hernia without obstruction or gangrene; G47.30 Sleep apnea, unspecified; Z79.85 Long-term (current) use of injectable non-insulin antidiabetic drugs; Z79.899 Other long term (current) drug therapy; Z98.41 Cataract extraction status, right eye; K21.9 Gastro-esophageal reflux disease without esophagitis; Z88.8 Allergy status to other drugs, medicaments and biological substances; Z88.1 Allergy status to other antibiotic agents; Z86.73 Personal history of transient ischemic attack (TIA), and cerebral infarction without residual deficits; Z86.711 Personal history of pulmonary embolism
CPT/HCPCS: 66984; J0697; J2250; J3010; V2632